=== PATIENT | female | born 2000 | race Caucasian/White ===

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

== ENCOUNTER 2018-04-17 23:45 | Emergency (ER) | payer MEDICAID, OTHER ==
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
[2018-04-18 07:44] VITALS: BP 112/86
== END 2018-04-18 05:44 | disposition home or self-care (01) ==
LOC: ER 23:45
DX: T74.21XA Adult sexual abuse, confirmed, initial encounter (principal); S31.41XA Laceration without foreign body of vagina and vulva, initial encounter; Y07.59 Other non-family member, perpetrator of maltreatment and neglect; Z88.5 Allergy status to narcotic agent; Z88.1 Allergy status to other antibiotic agents
CPT/HCPCS: 81025; 99285

== ENCOUNTER → 2018-05-18 | Outpatient (CLI) | payer OTHER, MEDICAID ==
[2018-05-18 09:38] LABS: CHOLESTEROL 199.35 mg/dL (0-200); GLUCOSE,FASTING 84 mg/dL (<110); TRIGLYCERIDES 81 mg/dL (<150)
[2018-05-18 09:49] LABS: DIRECT LDL 128 mg/dL (<100)
== END ==
LOC: OD 08:26
PROVIDERS: ATTEND Psychiatry & Neurology Psychiatry
DX: F43.12 Post-traumatic stress disorder, chronic (principal); Z79.899 Other long term (current) drug therapy
CPT/HCPCS: 36415; 80061; 82947; 83036

== ENCOUNTER 2018-06-01 14:52 | Emergency (ER) | payer OTHER, MEDICAID ==
[2018-06-01] MEDS ORDERED: IBUPROFEN 600 MG TABLET PO ONE (15:23)
--- NOTE | 2018-06-01 15:25 | ER Document Report ---
ED Medical Screen (RME) - General Chief Complaint: Abdominal Pain Stated Complaint: FEVER/ABDOMINAL PAIN Time Seen by Provider: 06/01/18 15:15 Primary Care Provider: BREA ESCOBAR MD [Primary Care Provider] - Follow up as needed Mode of Arrival: Ambulatory Information source: Patient TRAVEL OUTSIDE OF THE [place] IN LAST 30 DAYS: No - HPI Patient complains to provider of: HEADACHE, ABDO PAIN Notes: 06/01/18 15:24 Patient here with multiple complaints. Patient states she was seen in [facility] on the for similar symptoms. She was given some pain medicine and nausea medicine which she cannot remember the name of. She does not feel any better. Right now she is complaining of cough, lower abdominal pain is intermittent. She also complains of a headache. She states that today she was feeling dizzy at school. No chest pain or shortness of breath. Exam Nontoxic, no distress, lungs clear and equal throughout, normal heart sounds, nonfocal neurological exam. No focal tenderness on limited abdominal exam in triage. Plan CBC, CMP, lipase, urine, urine , chest x-ray, Motrin An initial examination was made on the patient as part of the triage process, and it was determined a more comprehensive evaluation was necessary. Initial labs were ordered and patient was transferred to another provider in the ED who assumed care and finished evaluation and plan. - Related Data Allergies/Adverse Reactions: codeine [Codeine] Allergy (Intermediate, Verified 04/17/18 23:47) RASH sulfamethoxazole [From Septra] Allergy (Intermediate, Verified 04/17/18 23:47) RASH trimethoprim [From Octra] Allergy (Verified 04/17/18 23:47) Past Medical History - Past Medical History Cardiac Medical History: Denies: Hx Heart Attack, Hx Hypertension Pulmonary Medical History: Denies: Hx Asthma Neurological Medical History: Denies: Hx Cerebrovascular Accident, Hx Seizures Renal/ Medical History: Denies: Hx Peritoneal Dialysis GI Medical History: Denies: Hx Hepatitis, Hx Hiatal Hernia, Hx Ulcer Infectious Medical History: Denies: Hx Hepatitis Past Surgical History: Denies: Hx Hysterectomy, Hx Mastectomy, Hx Open Heart Surgery, Hx Pacemaker Physical Exam - Vital signs Vitals: Temp Pulse Resp BP Pulse Ox 98.5 F 74 18 136/80 H 97 06/01/18 15:04 06/01/18 15:04 06/01/18 15:04 06/01/18 15:04 06/01/18 15:04 Course - Vital Signs Vital signs: Temp Pulse Resp BP Pulse Ox 98.5 F 74 18 136/80 H 97 06/01/18 15:04 06/01/18 15:04 06/01/18 15:04 06/01/18 15:04 06/01/18 15:04 Doctor's Discharge - Discharge Referrals: BREA ESCOBAR MD [Primary Care Provider] - Follow up as needed
--- NOTE | 2018-06-01 16:15 | RADIOLOGY REPORT (SQ) ---
EXAM DESCRIPTION: CHEST 2 VIEWS COMPLETED DATE/TIME: 06/01/2018 4:08 pm REASON FOR STUDY: COUGH COMPARISON: 08/06/2009. EXAM PARAMETERS: NUMBER OF VIEWS: two views TECHNIQUE: Digital Frontal and Lateral radiographic views of the chest acquired. RADIATION DOSE: NA LIMITATIONS: none FINDINGS: LUNGS AND PLEURA: No opacities, masses or pneumothorax. No pleural effusion. MEDIASTINUM AND HILAR STRUCTURES: No masses or contour abnormalities. HEART AND VASCULAR STRUCTURES: Heart normal size. No evidence for failure. BONES: No acute findings. HARDWARE: None in the chest. OTHER: No other significant finding. IMPRESSION: NO ACUTE RADIOGRAPHIC FINDING IN THE CHEST. TECHNICAL DOCUMENTATION: JOB ID: [id number]- All Rights Reserved Reading location - IP/workstation name: [email or web address]
[2018-06-01 16:36] LABS: ABSOLUTE LYMPHOCYTES (AUTO) 1.8 10^3/uL (0.5-4.7); ABSOLUTE MONOCYTES (AUTO) 0.7 10^3/uL (0.1-1.4); ABSOLUTE NEUT (AUTO) 6.6 10^3/uL (1.7-8.2); BASOPHILS % (AUTO) 0.5 % (0-2); EOSINOPHILS % (AUTO) 0.4 % (0-6); HEMOGLOBIN 14.6 g/dL (12.0-15.5); LYMPHOCYTES % (AUTO) 19.4 % (13-45); MEAN CORPUSCULAR HEMOGLOBIN 28.4 pg (27.0-33.4); MEAN CORPUSCULAR HGB CONC 34.1 g/dL (32.0-36.0); MEAN CORPUSCULAR VOLUME 83 fl (80-97); MONOCYTES % (AUTO) 7.8 % (3-13); PLATELET COUNT 377 10^3/uL (150-450); RED BLOOD COUNT 5.16 10^6/uL (3.72-5.28); RED CELL DISTRIBUTION WIDTH 12.7 % (11.5-14.0); SEGMENTED NEUTROPHILS % (AUTO) 71.9 % (42-78); TOTAL CELLS COUNTED % (AUTO) 100 %; WHITE BLOOD COUNT 9.2 10^3/uL (4.0-10.5)
[2018-06-01 16:46] LABS: APPEARANCE,URINE CLOUDY; BILIRUBIN,URINE NEGATIVE (NEGATIVE); COLOR,URINE YELLOW; GLUCOSE, URINE NEGATIVE (NEGATIVE); KETONES,URINE NEGATIVE (NEGATIVE); LEUKOCYTE ESTERASE,URINE TRACE (NEGATIVE); NITRITE,URINE NEGATIVE (NEGATIVE); PROTEIN,URINE 30 mg/dL (NEGATIVE)
[2018-06-01 16:55] LABS: ALANINE AMINOTRANSFERASE 20 U/L (5-35); ALBUMIN 4.8 g/dL (3.7-5.6); ALKALINE PHOSPHATASE 78 U/L (50-135); ANION GAP 9 (5-19); ASPARTATE AMINO TRANSFERASE 25 U/L (5-30); BILIRUBIN,DIRECT 0.2 mg/dL (0.0-0.4); BILIRUBIN,TOTAL 0.4 mg/dL (0.2-1.3); BLOOD UREA NITROGEN 8 mg/dL (7-20); CALCIUM 10.1 mg/dL (8.4-10.2); CARBON DIOXIDE 27 mmol/L (22-30); CHLORIDE 104 mmol/L (98-107); GLUCOSE 96 mg/dL (75-110); LIPASE 95.7 U/L (23-300); POTASSIUM 4.5 mmol/L (3.6-5.0); SODIUM 139.7 mmol/L (137-145); TOTAL PROTEIN 8.4 g/dL (6.3-8.2)
--- NOTE | 2018-06-01 17:15 | EKG REPORT ---
SEVERITY:- NORMAL ECG - SINUS RHYTHM : Confirmed by: Curtis Haynes MD 01-Jun-2018 17:14:37
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
[2018-06-01 19:30] VITALS: BP 109/61
== END 2018-06-01 19:30 | disposition home or self-care (01) ==
LOC: ER 14:52
DX: R10.9 Unspecified abdominal pain (principal); R11.0 Nausea; R25.1 Tremor, unspecified
CPT/HCPCS: 36415; 71046; 80053; 81001; 81025; 83690; 85025; 93005; 93010; 99284

== ENCOUNTER 2018-07-04 15:48 | Emergency (ER) | payer OTHER, MEDICAID ==
[2018-07-04 16:05] VITALS: BP 121/64
--- NOTE | 2018-07-04 16:30 | ER Document Report ---
HPI - HPI Time Seen by Provider: 07/04/18 16:24 Pain Level: 4 Notes: Patient is a 17-year-old female no significant past medical history who presents complaining of head injury yesterday while at work. Patient states that she is currently having a mild headache with intermittent nausea. Patient states that she hit her superior forehead against a faucet. She did not lose consciousness or have any episodes of vomiting. Patient states that she is going to need a w ork note. She has had decreased p.o. intake/appetite, but is still able to eat and drink. She is urinating normally and having normal bowel movements. She has no other concerns or complaints. She is not on any blood thinning medications. Denies any fever, neck pain, changes in vision/speech/mentation/hearing, URI, sore throat, chest pain, palpitations, syncope, cough, shortness of breath, wheeze, dyspnea, abdominal pain, vomiting/diarrhea, urinary retention, dysuria, hematuria, loss of control of bowel or bladder, numbness/tingling, saddle anesthesia, muscle paralysis/weakness, or rash. - ROS Systems Reviewed and Negative: Yes All other systems reviewed and negative - REPRODUCTIVE Reproductive: DENIES: : Past Medical History - Social History Smoking Status: Never Smoker Family History: Reviewed & Not Pertinent - Past Medical History Cardiac Medical History: Denies: Hx Heart Attack, Hx Hypertension Pulmonary Medical History: Denies: Hx Asthma Neurological Medical History: Denies: Hx Cerebrovascular Accident, Hx Seizures Renal/ Medical History: Denies: Hx Peritoneal Dialysis GI Medical History: Denies: Hx Hepatitis, Hx Hiatal Hernia, Hx Ulcer Infectious Medical History: Denies: Hx Hepatitis Past Surgical History: Denies: Hx Hysterectomy, Hx Mastectomy, Hx Open Heart Surgery, Hx Pacemaker Vertical Provider Document - CONSTITUTIONAL Agree With Documented VS: Yes Notes: PHYSICAL EXAMINATION: accompanied by female nurse GENERAL: Well-appearing, well-nourished and in no acute distress. A&Ox4. Answers questions appropriately. HEAD: Atraumatic, normocephalic. Non-tender. No lancaster sign no hematoma or bogginess.. EYES: Pupils equal round and reactive to light, extraocular movements intact, sclera anicteric, conjunctiva are normal. No raccoon eyes/entrapment ENT: EAC clear b/l. TM's intact b/l without erythema, fluid, or perforation. Nares patent and without discharge. oropharynx clear without exudates. No tonsilar hypertrophy or erythema. Moist mucous membranes. No sinus tenderness. No hemotympanum/CSF discharge. NECK: Normal range of motion, supple without lymphadenopathy. No rigidity. No midline tenderness. LUNGS: Breath sounds clear to auscultation bilaterally and equal. No wheezes rales or rhonchi. HEART: Regular rate and rhythm without murmurs, rubs, gallops. ABDOMEN: Soft, nontender, nondistended abdomen. No guarding, no rebound. Normal bowel sounds present. No CVA tenderness bilaterally. Musculoskeletal: Ext's b/l: FROM to passive/active. Strength 5+/5. No deficits noted. No bony tenderness of extremities. Back: FROM to passive/active. Strength 5+/5. No vertebral point tenderness, stepoffs, or deformities. No other bony tenderness or ecchymosis. SLR negative b/l. Extremities: No cyanosis, clubbing, or edema b/l. Peripheral pulses 2+. Capillary refill less than 2 seconds. NEUROLOGICAL: NIH 0. GCS 15. Cranial nerves grossly intact. Normal speech, normal gait. Normal sensory, motor exams. Reflexes 2+ b/l. GISELE's negative. Pronator drift negative. Heel/batista, finger/nose wnl. PSYCH: Normal mood, normal affect. SKIN: Warm, Dry, normal turgor, no rashes or lesions noted. - INFECTION CONTROL TRAVEL OUTSIDE OF THE [place] IN LAST 30 DAYS: No Course - Re-evaluation Re-evalutation: 07/04/18 16:54 Patient is an afebrile, well-hydrated, 17-year-old female who presents to the emergency department with a mild headache and nausea status post head injury yesterday. I do suspect this to be postconcussive. Vitals are acceptable without significant tachycardia, tachypnea, or hypoxia. PE is otherwise unremarkable for any focal neurological deficits. NIH 0, GCS 15, cranial nerves grossly intact, CT [place] head criteria negative, PECARN negative, Nexus negative. No labs or imaging warranted. Patient is nontoxic-appearing and is able to tolerate p.o. without difficulty. Motrin and Zofran were given p.o. today. Low suspicion for any sepsis, severe dehydration, orbital entrapment, meningitis, intracranial hemorrhage, ischemic stroke, or fracture at this time. Patient is aware that this condition can change from initial presentation and that she needs to monitor symptoms closely for any acute changes. Recheck with your PCM in 2 to 3 days. Consider consult with neurology. Return to the ED with any other worsening/concerning symptoms. Patient is in agreement. - Vital Signs Vital signs: Temp Pulse Resp BP Pulse Ox 98.4 F 93 H 18 121/64 97 07/04/18 16:03 07/04/18 16:03 07/04/18 16:03 07/04/18 16:03 07/04/18 16:03 Discharge - Discharge Clinical Impression: Post concussion syndrome Head injury Qualifiers: Encounter type: initial encounter Qualified Code(s): S09.90XA - Unspecified injury of head, initial encounter Headache Qualifiers: Headache type: unspecified Headache chronicity pattern: acute headache Intractability: not intractable Qualified Code(s): R51 - Headache Condition: Stable Disposition: HOME, SELF-CARE Instructions: Headache ([facility]), Head Injury Precautions ([facility]), Post-Concussion Syndrome ([facility]) Additional Instructions: You have been evaluated in the Emergency Department for a head injury and have been diagnosed with a concussion. Concussions can be associated with any of the following symptoms: confusion, sleepiness, memory deficits, nausea, general fatigue, or headaches. The only way to treat these symptoms is complete brain rest. Please follow-up with both your primary physician and a Neurologist in 1-2 weeks to be rechecked. Return to the ER immediately if you experience episodes of passing out, having an unstable or wobbly gait, have uncontrollable headaches or nausea, have blindness/vision changes, or have any other concerning symptoms. Brain Rest: 1. No activity/work/school or phone/TV/computer for at least one week. 2. After a week you can slowly incorporate small tasks like brushing your teeth and other small activities over a couple days. 3. If symptoms return, go back to step 1 and repeat; if no further symptoms, progress to step 4. 4. After small tasks can be performed without symptoms, slowly introduce more rigorous tasks like cooking, cleaning, etc. over 2-3 days. 5. If symptoms return, go back to step 1 and repeat; if no further symptoms, progress to step 6. 6. If rigorous tasks can be performed without symptoms, you may resume normal daily activity. 7. At any point, if symptoms return, return to strict brain rest and start the process over. Return to the ED with any worsening symptoms and/or development of fever, headache, changes in behavior/mentation/vision/speech, chest pain, palpitations, syncope, shortness of breath, trouble breathing, abdominal pain, n/v/d, blood in stool/urine, loss of control of bowel/bladder, urinary retention, muscle weakness/paralysis, saddle anesthesia, numbness/tingling, or other worsening symptoms that are concerning to you. Prescriptions: Ondansetron [Zofran Odt 4 mg Tablet] 1 - 2 tab PO Q4H PRN #15 tab.rapdis PRN Reason: For Nausea/Vomiting Referrals: BREA ESCOBAR MD [NO LOCAL MD] - Follow up as needed GERSON DAILY MD [NO LOCAL MD] - Follow up as needed
[2018-07-04] MEDS ORDERED: IBUPROFEN 600 MG TABLET PO ONE (16:48)
[2018-07-04] MEDS ORDERED: ONDANSETRON 4 MG TAB.RAPDIS PO ONE (16:48)
== END 2018-07-04 16:58 | disposition home or self-care (01) ==
LOC: ER 15:48
DX: S09.90XA Unspecified injury of head, initial encounter (principal); R11.0 Nausea; X58.XXXA Exposure to other specified factors, initial encounter; Y99.0 Civilian activity done for income or pay
CPT/HCPCS: 99283; S0119

== ENCOUNTER 2018-07-21 21:53 | Emergency (ER) | payer OTHER, MEDICAID ==
[2018-07-21] MEDS ORDERED: ONDANSETRON 4 MG TAB.RAPDIS PO ONE (23:59)
--- NOTE | 2018-07-22 00:02 | ER Document Report ---
ED Medical Screen (RME) - General Chief Complaint: Abdominal Pain Stated Complaint: STOMACH PAIN Time Seen by Provider: 07/21/18 23:56 Primary Care Provider: SULEIMAN ONEAL MD [Primary Care Provider] - Follow up as needed Notes: Patient is a 17-year-old female who presents emergency department with a chief complaint of lower abdominal pain. She states that it is a sharp pain. She states that she had sex about a week ago and since then she has had a sharp pain where her IUD is. She is sexually active. Her last menstrual cycle was in the beginning of June. She does not recall the date. Denies any vaginal discharge. Exam: Tender mid lower abdomen. I have greeted and performed a rapid initial assessment of this patient. A comprehensive ED assessment and evaluation of the patient, analysis of test results and completion of medical decision making process will be conducted by an additional ED providers. TRAVEL OUTSIDE OF THE [place] IN LAST 30 DAYS: No - Related Data Allergies/Adverse Reactions: codeine [Codeine] Allergy (Intermediate, Verified 07/04/18 15:58) RASH sulfamethoxazole [From Septra] Allergy (Intermediate, Verified 07/04/18 15:58) RASH trimethoprim [From Octra] Allergy (Verified 07/04/18 15:58) Past Medical History - Past Medical History Cardiac Medical History: Denies: Hx Heart Attack, Hx Hypertension Pulmonary Medical History: Denies: Hx Asthma Neurological Medical History: Denies: Hx Cerebrovascular Accident, Hx Seizures Renal/ Medical History: Denies: Hx Peritoneal Dialysis GI Medical History: Denies: Hx Hepatitis, Hx Hiatal Hernia, Hx Ulcer Infectious Medical History: Denies: Hx Hepatitis Past Surgical History: Denies: Hx Hysterectomy, Hx Mastectomy, Hx Open Heart Surgery, Hx Pacemaker Physical Exam - Vital signs Vitals: Temp Pulse Resp BP Pulse Ox 98.1 F 72 16 122/78 99 07/21/18 22:08 07/21/18 22:08 07/21/18 22:08 07/21/18 22:08 07/21/18 22:08 Course - Vital Signs Vital signs: Temp Pulse Resp BP Pulse Ox 98.1 F 72 16 122/78 99 07/21/18 22:08 07/21/18 22:08 07/21/18 22:08 07/21/18 22:08 07/21/18 22:08 Doctor's Discharge - Discharge Referrals: SULEIMAN ONEAL MD [Primary Care Provider] - Follow up as needed
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
--- NOTE | 2018-07-22 01:23 | RADIOLOGY REPORT (SQ) ---
EXAM DESCRIPTION: US PELVIS TRANSVAGINAL COMPLETED DATE/TME: 07/22/2018 00:34 CLINICAL HISTORY: 17 years Female pelvic pain COMPARISON: None. TECHNIQUE: Transvaginal duplex imaging performed to evaluate the pelvis. FINDINGS: Uterus measures 6.6 x 3 x 2.3 cm. Cervix measures 2.3 cm. Endometrial stripe 4 mm. Left ovary is obscured by bowel gas. Right ovary measures 2.9 x 2.3 cm with normal flow. Simple appearing cyst measures 1.9 cm. This is almost certainly benign and no follow-up is recommended. No free fluid. IMPRESSION: No acute process noted Nonvisualization of the left ovary
[2018-07-22] MEDS ORDERED: ONDANSETRON HCL 8 MG TABLET PO ONE (02:00)
[2018-07-22] MEDS ORDERED: ONDANSETRON 4 MG TAB.RAPDIS PO ONE (02:13)
[2018-07-22 02:32] LABS: ABSOLUTE BASOPHILS # (AUTO) 0.1 10^3/uL (0.0-0.2); ABSOLUTE EOSINOPHILS # (AUTO) 0.1 10^3/uL (0.0-0.6); ABSOLUTE LYMPHOCYTES (AUTO) 2.8 10^3/uL (0.5-4.7); ABSOLUTE MONOCYTES (AUTO) 0.8 10^3/uL (0.1-1.4); ABSOLUTE NEUT (AUTO) 5.6 10^3/uL (1.7-8.2); EOSINOPHILS % (AUTO) 1.1 % (0-6); HEMATOCRIT 40.8 % (36.0-47.0); LYMPHOCYTES % (AUTO) 30.3 % (13-45); MEAN CORPUSCULAR HEMOGLOBIN 28.8 pg (27.0-33.4); MEAN CORPUSCULAR HGB CONC 34.3 g/dL (32.0-36.0); MEAN CORPUSCULAR VOLUME 84 fl (80-97); MONOCYTES % (AUTO) 8.4 % (3-13); PLATELET COUNT 310 10^3/uL (150-450); RED BLOOD COUNT 4.85 10^6/uL (3.72-5.28); RED CELL DISTRIBUTION WIDTH 13.8 % (11.5-14.0); SEGMENTED NEUTROPHILS % (AUTO) 59.2 % (42-78); TOTAL CELLS COUNTED % (AUTO) 100 %; WHITE BLOOD COUNT 9.4 10^3/uL (4.0-10.5)
[2018-07-22 02:42] LABS: APPEARANCE,URINE SLIGHTLY-CLOUDY; BILIRUBIN,URINE NEGATIVE (NEGATIVE); COLOR,URINE AMBER; GLUCOSE, URINE NEGATIVE (NEGATIVE); KETONES,URINE TRACE mg/dL (NEGATIVE); LEUKOCYTE ESTERASE,URINE NEGATIVE (NEGATIVE); NITRITE,URINE NEGATIVE (NEGATIVE); PROTEIN,URINE NEGATIVE (NEGATIVE); URINE SPECIFIC GRAVITY 1.026; UROBILINOGEN,URINE NEGATIVE mg/dL (<2.0)
[2018-07-22 02:50] LABS: ALANINE AMINOTRANSFERASE 24 U/L (5-35); ALBUMIN 4.6 g/dL (3.7-5.6); ALKALINE PHOSPHATASE 71 U/L (50-135); ANION GAP 9 (5-19); ASPARTATE AMINO TRANSFERASE 22 U/L (5-30); BILIRUBIN,DIRECT 0.2 mg/dL (0.0-0.4); BILIRUBIN,TOTAL 0.3 mg/dL (0.2-1.3); BLOOD UREA NITROGEN 12 mg/dL (7-20); CALCIUM 9.8 mg/dL (8.4-10.2); CARBON DIOXIDE 27 mmol/L (22-30); CHLORIDE 102 mmol/L (98-107); GLUCOSE 105 mg/dL (75-110); POTASSIUM 3.9 mmol/L (3.6-5.0); SODIUM 138.3 mmol/L (137-145); TOTAL PROTEIN 7.8 g/dL (6.3-8.2)
[2018-07-22 04:02] LABS: CHLAM PCR NOT DETECTED (NOT DETECT); GON PCR NOT DETECTED (NOT DETECT)
[2018-07-22 04:49] VITALS: BP 120/67
[2018-07-22 05:16] LABS: RBCS (WET MOUNT) NO RBCS SEEN; T.VAGINALIS (WET MOUNT) NO TRICHOMONAS SEEN; WBCS (WET MOUNT) FEW WBCS SEEN; YEAST (WET MOUNT) NO YEAST SEEN
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
[2018-07-22] MEDS ORDERED: KETOROLAC TROMETHAMINE 10 MG TABLET PO ONE (05:43)
== END 2018-07-22 06:00 | disposition home or self-care (01) ==
LOC: ER 21:53
DX: R10.2 Pelvic and perineal pain (principal); N89.8 Other specified noninflammatory disorders of vagina; Z79.3 Long term (current) use of hormonal contraceptives; Z91.410 Personal history of adult physical and sexual abuse; Z88.6 Allergy status to analgesic agent; Z88.1 Allergy status to other antibiotic agents
CPT/HCPCS: 99284; 36415; 87210; 84703; 85025; 80053; 81001; 87491; 87591; 76830; 93976; S0119; J3490

== ENCOUNTER → 2018-08-17 | Outpatient (CLI) | payer OTHER, MEDICAID | LOC: OD 14:51 | PROVIDERS: ATTEND Physician Assistant | DX: L40.0 Psoriasis vulgaris (principal); L02.424 Furuncle of left upper limb; L02.423 Furuncle of right upper limb; Z79.899 Other long term (current) drug therapy ==

== ENCOUNTER 2018-08-29 10:47 | Emergency (ER) | payer OTHER, MEDICAID ==
[2018-08-29 10:53] VITALS: BP 104/59
--- NOTE | 2018-08-29 11:07 | ER Document Report ---
HPI - HPI Time Seen by Provider: 08/29/18 10:58 Pain Level: 3 Notes: Patient is a 17-year-old female no significant past medical history who presents complaining of right anterior knee pain for the past couple days without injury. Patient states that she primarily feels pain with deep knee bending, but otherwise can ambulate without difficulty. She has not noticed any swelling, redness, or bruising. Pain does not radiate. Denies any headache, fever, URI, sore throat, chest pain, palpitations, syncope, cough, shortness of breath, wheeze, dyspnea, abdominal pain, nausea/vomiting/diarrhea, urinary retention, dysuria, hematuria, loss of control of bowel or bladder, numbness/tingling, saddle anesthesia, muscle paralysis/weakness, or rash. - ROS Systems Reviewed and Negative: Yes All other systems reviewed and negative - REPRODUCTIVE Reproductive: DENIES: : Past Medical History - Social History Smoking Status: Never Smoker Family History: Reviewed & Not Pertinent - Past Medical History Cardiac Medical History: Denies: Hx Heart Attack, Hx Hypertension Pulmonary Medical History: Denies: Hx Asthma Neurological Medical History: Denies: Hx Cerebrovascular Accident, Hx Seizures Renal/ Medical History: Denies: Hx Peritoneal Dialysis GI Medical History: Denies: Hx Hepatitis, Hx Hiatal Hernia, Hx Ulcer Infectious Medical History: Denies: Hx Hepatitis Past Surgical History: Denies: Hx Hysterectomy, Hx Mastectomy, Hx Open Heart Surgery, Hx Pacemaker Vertical Provider Document - CONSTITUTIONAL Agree With Documented VS: Yes Notes: PHYSICAL EXAMINATION: GENERAL: Well-appearing, well-nourished and in no acute distress. LUNGS: Breath sounds clear to auscultation bilaterally and equal. No wheezes rales or rhonchi. HEART: Regular rate and rhythm without murmurs, rubs, gallops. Musculoskeletal: Lt knee: No obvious swelling, ecchymosis, effusion, or deformity. FROM to passive/active and flexion >90 w/o difficulty. Strength 5+/5. N/V intact distal. No bony tenderness. Ligamentous grossly stable, limited exam with larger leg size. Arcenio grossly negative. Patellar grind negative. No calf tenderness. Extremities: No cyanosis, clubbing, or edema b/l. Peripheral pulses 2+. C apillary refill less than 3 seconds. Arin neg b/l. NEUROLOGICAL: Normal speech, normal gait. Normal sensory, motor exams PSYCH: Normal mood, normal affect. SKIN: Warm, Dry, normal turgor, no rashes or lesions noted. - INFECTION CONTROL TRAVEL OUTSIDE OF THE [place] IN LAST 30 DAYS: No Course - Re-evaluation Re-evalutation: 08/29/18 11:06 Patient is an afebrile, well-hydrated, 51-year-old female who presents to the ED with Rt Knee pain. Vitals are acceptable without any significant tachycardia, tachypnea, or hypoxia. PE is otherwise unremarkable for any neurovascular compromise, obvious tendon/ligament rupture, obvious fracture/dislocation, septic joint. Bosque knee rules negative. Patient is nontoxic-appearing. Patient is able to ambulate and weight-bear. No other labs or imaging warranted at this time based on H&P. Conservative measures otherwise for symptoms. Recheck with your PCM in 3-5 days. Consider consult orthopedics. Return to the ED with any worsening/concerning symptoms otherwise as reviewed in discharge. Patient is in agreement. - Vital Signs Vital signs: Temp Pulse Resp BP Pulse Ox 98.4 F 80 16 104/59 L 97 08/29/18 10:52 08/29/18 10:52 08/29/18 10:52 08/29/18 10:52 08/29/18 10:52 Discharge - Discharge Clinical Impression: Right knee pain Qualifiers: Chronicity: acute Qualified Code(s): M25.561 - Pain in right knee Condition: Stable Disposition: HOME, SELF-CARE Additional Instructions: Rest, Ice, Compression, Elevation Tylenol/ibuprofen as needed Light stretches daily Strength exercises as able Moist heat and massage may help F/u with your PCP in 3-5 days for a recheck Consider consult(s) with Orthopedics/physical therapy for ongoing/worsening symptoms Return to the ED with any worsening symptoms and/or development of fever, headache, chest pain, palpitations, syncope, shortness of breath, trouble breathing, abdominal pain, n/v/d, muscle weakness/paralysis, numbness/tingling, swelling, redness, or other worsening symptoms that are concerning to you. Referrals: INGRIS WHITE PA [Primary Care Provider] - Follow up as needed [facility] [Provider Group] - Follow up as needed
== END 2018-08-29 11:10 | disposition home or self-care (01) ==
LOC: ER 10:47
DX: M25.561 Pain in right knee (principal)
CPT/HCPCS: 99283

== ENCOUNTER 2018-10-27 13:36 | Emergency (ER) | payer OTHER, MEDICAID ==
--- NOTE | 2018-10-27 14:18 | ER Document Report ---
ED Medical Screen (RME) - General Chief Complaint: Nausea/Vomiting Stated Complaint: HEADACHE Time Seen by Provider: 10/27/18 14:12 Primary Care Provider: EDDIE ENRIQUE NP [Primary Care Provider] - Follow up as needed TRAVEL OUTSIDE OF THE [place] IN LAST 30 DAYS: No - HPI Notes: 10/27/18 14:20 17-year-old female to the emergency department with complaints of headache, dizziness that has been getting worse over the past several days since she restarted her psychotropic medicine. She states that she is on sertraline 100 mg. She is supposed to be taking half a tablet to 1 tablet daily (50-100 mg) and she has been taking 300 mg daily instead. She also has been taking BuSpar she supposed to be taking 1 tablet about a day and she is been taking 3 tablets as well. She does admit to some tremors as well. She also admits to some confusion. She denies SI, HI, hallucinations. I performed a medical screening exam on the patient and will obtain labs, EKG and have her followed and further managed by main side provider. - Related Data Allergies/Adverse Reactions: codeine [Codeine] Allergy (Intermediate, Verified 08/29/18 10:49) RASH sulfamethoxazole [From Septra] Allergy (Intermediate, Verified 08/29/18 10:49) RASH trimethoprim [From Septra] Allergy (Verified 08/29/18 10:49) Past Medical History - Past Medical History Cardiac Medical History: Denies: Hx Heart Attack, Hx Hypertension Pulmonary Medical History: Denies: Hx Asthma Neurological Medical History: Denies: Hx Cerebrovascular Accident, Hx Seizures Renal/ Medical History: Denies: Hx Peritoneal Dialysis GI Medical History: Denies: Hx Hepatitis, Hx Hiatal Hernia, Hx Ulcer Infectious Medical History: Denies: Hx Hepatitis Past Surgical History: Denies: Hx Hysterectomy, Hx Mastectomy, Hx Open Heart Surgery, Hx Pacemaker Physical Exam - Vital signs Vitals: Temp Pulse Resp BP Pulse Ox 98.7 F 74 16 121/78 96 10/27/18 13:44 10/27/18 13:44 10/27/18 13:44 10/27/18 13:44 10/27/18 13:44 Course - Vital Signs Vital signs: Temp Pulse Resp BP Pulse Ox 98.7 F 74 16 121/78 96 10/27/18 13:44 10/27/18 13:44 10/27/18 13:44 10/27/18 13:44 10/27/18 13:44 Doctor's Discharge - Discharge Referrals: EDDIE ENRIQUE NP [Primary Care Provider] - Follow up as needed
[2018-10-27 15:07] LABS: ABSOLUTE BASOPHILS # (AUTO) 0.1 10^3/uL (0.0-0.2); ABSOLUTE EOSINOPHILS # (AUTO) 0.1 10^3/uL (0.0-0.6); ABSOLUTE LYMPHOCYTES (AUTO) 2.2 10^3/uL (0.5-4.7); ABSOLUTE MONOCYTES (AUTO) 0.8 10^3/uL (0.1-1.4); ABSOLUTE NEUT (AUTO) 6.6 10^3/uL (1.7-8.2); BASOPHILS % (AUTO) 0.9 % (0-2); EOSINOPHILS % (AUTO) 0.7 % (0-6); HEMATOCRIT 42.5 % (36.0-47.0); HEMOGLOBIN 14.4 g/dL (12.0-15.5); LYMPHOCYTES % (AUTO) 22.5 % (13-45); MEAN CORPUSCULAR HGB CONC 33.9 g/dL (32.0-36.0); MEAN CORPUSCULAR VOLUME 83 fl (80-97); MONOCYTES % (AUTO) 7.8 % (3-13); PLATELET COUNT 380 10^3/uL (150-450); RED BLOOD COUNT 5.15 10^6/uL (3.72-5.28); RED CELL DISTRIBUTION WIDTH 12.9 % (11.5-14.0); SEGMENTED NEUTROPHILS % (AUTO) 68.1 % (42-78); TOTAL CELLS COUNTED % (AUTO) 100 %; WHITE BLOOD COUNT 9.7 10^3/uL (4.0-10.5)
[2018-10-27 15:13] LABS: APPEARANCE,URINE CLEAR; BILIRUBIN,URINE NEGATIVE (NEGATIVE); COLOR,URINE YELLOW; GLUCOSE, URINE NEGATIVE (NEGATIVE); KETONES,URINE NEGATIVE (NEGATIVE); LEUKOCYTE ESTERASE,URINE NEGATIVE (NEGATIVE); NITRITE,URINE NEGATIVE (NEGATIVE); PROTEIN,URINE NEGATIVE (NEGATIVE); URINE SPECIFIC GRAVITY 1.024; UROBILINOGEN,URINE NEGATIVE mg/dL (<2.0)
[2018-10-27 15:28] VITALS: BP 106/65
[2018-10-27 15:35] LABS: ALBUMIN 4.6 g/dL (3.7-5.6); ALKALINE PHOSPHATASE 101 U/L (50-135); ANION GAP 11 (5-19); ASPARTATE AMINO TRANSFERASE 25 U/L (5-30); BILIRUBIN,DIRECT 0.1 mg/dL (0.0-0.4); BILIRUBIN,TOTAL 0.5 mg/dL (0.2-1.3); BLOOD UREA NITROGEN 10 mg/dL (7-20); CALCIUM 9.7 mg/dL (8.4-10.2); CARBON DIOXIDE 28 mmol/L (22-30); CHLORIDE 101 mmol/L (98-107); GLUCOSE 89 mg/dL (75-110); POTASSIUM 4.3 mmol/L (3.6-5.0); TOTAL PROTEIN 7.8 g/dL (6.3-8.2)
--- NOTE | 2018-10-27 15:57 | ER Document Report ---
ED GI/ - General Chief Complaint: Nausea/Vomiting Stated Complaint: HEADACHE Time Seen by Provider: 10/27/18 14:12 Primary Care Provider: EDDIE ENRIQUE NP [Primary Care Provider] - Follow up as needed Mode of Arrival: Ambulatory Information source: Patient Notes: 17-year-old female presented to ED for complaint of headache and dizziness for the last 4 days. She states she started back on her Sertraline and BuSpar. She states she was supposed to take on one a day because she had been off of them and then restarted but she is been taken 3 a day. She states she was on it before and was off of it for months and she wanted to take about the way she wanted to instead of the way the doctor prescribed. She states she has been dizzy and headaches. Orthostatic vital signs are normal all lab works are normal these were all ordered before I saw the patient. TRAVEL OUTSIDE OF THE [place] IN LAST 30 DAYS: No - HPI Patient complains to provider of: Other - Dizziness and headache Onset: Other - 4 days Timing/Duration: Persistent - Due to taken 3 times the amount of her mental health medications that she supposed to. Quality of pain: Achy Severity at maximum: Moderate Severity in ED: Moderate Pain Level: 3 Vaginal bleeding (Compared to normal period): None Associated symptoms: denies: Nausea, Vomiting Exacerbated by: Denies Relieved by: Denies Similar symptoms previously: No Recently seen / treated by doctor: Yes - Related Data Allergies/Adverse Reactions: codeine [Codeine] Allergy (Intermediate, Verified 08/29/18 10:49) RASH sulfamethoxazole [From Septra] Allergy (Intermediate, Verified 08/29/18 10:49) RASH trimethoprim [From Septra] Allergy (Verified 08/29/18 10:49) Past Medical History - General Information source: Patient - Social History Smoking Status: Never Smoker Frequency of alcohol use: None Drug Abuse: None Occupation: hotel dining room cashier Lives with: Spouse/Significant other Family History: Reviewed & Not Pertinent Patient has suicidal ideation: No Patient has homicidal ideation: No - Past Medical History Cardiac Medical History: Reports: None Pulmonary Medical History: Reports: None EENT Medical History: Reports: None Neurological Medical History: Reports: None Endocrine Medical History: Reports: None Renal/ Medical History: Reports: None Malignancy Medical History: Reports: None GI Medical History: Reports: None Musculoskeletal Medical History: Reports None Skin Medical History: Reports None Psychiatric Medical History: Reports: Hx Anxiety, Hx Borderline Personality Disorder, Hx Depression Traumatic Medical History: Reports: None Infectious Medical History: Reports: None Surgical Hx: Negative Past Surgical History: Reports: None - Immunizations Immunizations up to date: Yes Review of Systems - Review of Systems Constitutional: No symptoms reported EENT: No symptoms reported Cardiovascular: Dizziness Respiratory: No symptoms reported Gastrointestinal: No symptoms reported Genitourinary: No symptoms reported Female Genitourinary: No symptoms reported Musculoskeletal: No symptoms reported Skin: No symptoms reported Hematologic/Lymphatic: No symptoms reported Neurological/Psychological: Headaches -: Yes All other systems reviewed and negative Physical Exam - Vital signs Vitals: Temp Pulse Resp BP Pulse Ox 98.7 F 74 16 121/78 96 10/27/18 13:44 10/27/18 13:44 10/27/18 13:44 10/27/18 13:44 10/27/18 13:44 Interpretation: Normal - General General appearance: Appears well, Alert - HEENT Head: Normocephalic, Atraumatic Eyes: Normal Pupils: PERRL - Respiratory Respiratory status: No respiratory distress Chest status: Nontender Breath sounds: Normal Chest palpation: Normal - Cardiovascular Rhythm: Regular Heart sounds: Normal auscultation Murmur: No - Abdominal Inspection: Normal Distension: No distension Bowel sounds: Normal Tenderness: Nontender Organomegaly: No organomegaly - Back Back: Normal, Nontender - Extremities General upper extremity: Normal inspection, Nontender, Normal color, Normal ROM, Normal temperature General lower extremity: Normal inspection, Nontender, Normal color, Normal ROM, Normal temperature, Normal weight bearing. 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 Patient was instructed to pl ease take medications as prescribed not as she has previously done but as they are prescribed now. Patient was instructed to follow-up with her primary care doctor on Thursday. Labs and orthostatic vital signs are negative. Patient is alert and oriented walking with a even steady gait. - Vital Signs Vital signs: Temp Pulse Resp BP Pulse Ox 98.7 F 64 16 106/65 96 10/27/18 13:44 10/27/18 15:26 10/27/18 13:44 10/27/18 15:26 10/27/18 13:44 - Laboratory Result Diagrams: 10/27/18 14:53 10/27/18 14:53 Discharge - Discharge Clinical Impression: Dizziness, taking more than prescibed sertraline Condition: Stable Disposition: HOME, SELF-CARE Additional Instructions: Please only take the prescribed dose of your medication. When your mental healt h worker is ready for you to take a larger dose they will prescribe a larger dose. Acetaminophen Acetaminophen may be taken for pain relief or fever control. It's much safer than aspirin, offering a wider range of "safe" dosages. It is safe during . Some brand names are Tylenol, Panadol, Datril, Anacin 3, Tempra, and Liquiprin. Acetaminophen can be repeated every four hours. The following are maximum recommended dosages: WEIGHT Dose Drops Elixir Chewable(80mg) (LBS.) drprs=droppers tsp=teaspoon 6 40 mg .4 ml (1/2) 6-11 80 mg .8 ml (full) 1/2 tsp 1 tab 12-16 120 mg 1 1/2 drprs 3/4 tsp 1 1/2 tabs 17-23 160 mg 2 drprs 1 tsp 2 tabs 24-30 240 mg 3 drprs 1 1/2 tsp 3 tabs 30-35 320 mg 2 tsp 4 tabs 36-41 360 mg 2 1/4 tsp 4 1/2 tabs 42-47 400 mg 2 1/2 tsp 5 tabs 48-53 480 mg 3 tsp 6 tabs 54-59 520 mg 3 1/4 tsp 6 1/2 tabs 60-64 560 mg 3 1/2 tsp 7 tabs 65-70 600 mg 3 3/4 tsp 7 1/2 tabs 71-76 640 mg 4 tsp 8 tabs 77-82 720 mg 4 1/2 tsp 9 tabs 83-88 800 mg 5 tsp 10 tabs >89 pounds or adults 650 mg to 900 mg Acetaminophen can be repeated every four hours. Maximum daily dose not to exceed 4000 mg. These maximum recommended dosages are slightly higher than the dosages written on the product container, but these dosages are very safe and well below the toxic dosage for acetaminophen. FOLLOW-UP CARE: If you have been referred to a physician for follow-up care, call the [facility] office for an appointment as you were instructed or within the next two days. If you experience worsening or a significant change in your symptoms, notify the physician immediately or return to the Emergency Department at any time for re-evaluation. Forms: Return to Work Referrals: EDDIE ENRIQUE NP [Primary Care Provider] - Follow up as needed
[2018-10-27] MEDS ORDERED: ACETAMINOPHEN 325 MG TABLET PO ONE (16:09)
--- NOTE | 2018-10-27 18:25 | EKG REPORT ---
SEVERITY:- NORMAL ECG - SINUS RHYTHM : Confirmed by: Curtis Haynes MD 27-Oct-2018 18:25:26
== END 2018-10-27 16:50 | disposition home or self-care (01) ==
LOC: ER 13:36
DX: R11.2 Nausea with vomiting, unspecified (principal); R51 Headache; R42 Dizziness and giddiness; Z79.899 Other long term (current) drug therapy; Z91.14 Patient's other noncompliance with medication regimen
CPT/HCPCS: 36415; 80053; 81001; 83735; 84703; 85025; 93005; 93010

== ENCOUNTER 2018-11-13 21:15 | Emergency (ER) | payer OTHER, MEDICAID ==
[2018-11-13] MEDS ORDERED: NORMAL SALINE 1000 ML 1,000 ML IV ONE (21:37)
--- NOTE | 2018-11-13 21:37 | ER Document Report ---
ED Medical Screen (RME) - General Chief Complaint: Abdominal Pain Stated Complaint: ABDOMINAL PAIN Time Seen by Provider: 11/13/18 21:32 Primary Care Provider: EDDIE ENRIQUE NP [Primary Care Provider] - Follow up as needed Mode of Arrival: Ambulatory Information source: Patient Notes: 17-year-old female presents to the ED with possible abdominal pain. Her friend is with her who states that she is to be his surrogate mother. He states that she told him that she was having abdominal pain yesterday and it is much worse today. Patient stated she was having right and left abdominal pain suprapubic pain and low back pain. She states she is having a small amount of vaginal bleeding. She states her last menstrual period was in September and she is trying to be a surrogate mother. Patient would not answer any questions at first but in the end she did answer where her pain was. She is curled up in a ball in the wheelchair and refuses to sit or I can examine her at all in the pit area. I have reviewed patient's medical and surgical history with her and I have updated it. I have greeted and performed a rapid initial assessment of this patient. A comprehensive ED assessment and evaluation of the patient, analysis of test results and completion of medical decision making process will be conducted by an additional ED providers. TRAVEL OUTSIDE OF THE [place] IN LAST 30 DAYS: No - Related Data Allergies/Adverse Reactions: codeine [Codeine] Allergy (Intermediate, Verified 08/29/18 10:49) RASH sulfamethoxazole [From Septra] Allergy (Intermediate, Verified 08/29/18 10:49) RASH trimethoprim [From Septra] Allergy (Verified 08/29/18 10:49) Past Medical History - General Information source: Friend - Social History Cigarette use (# per day): Yes - sometimes Frequency of alcohol use: None Drug Abuse: None Lives with: Friend Family history: Reviewed & Not Pertinent - Past Medical History Cardiac Medical History: Reports: None Pulmonary Medical History: Reports: None EENT Medical History: Reports: None Neurological Medical History: Reports: None Endocrine Medical History: Reports: None Renal/ Medical History: Reports: None Malignancy Medical History: Reports: None GI Medical History: Reports: None Musculoskeltal Medical History: Reports None Skin Medical History: Reports None Psychiatric Medical History: Reports: Hx Anxiety, Hx Borderline Personality Disorder, Hx Depression, Hx Post Traumatic Stress Disorder Traumatic Medical History: Reports: None Infectious Medical History: Reports: None Surgical Hx: Negative Past Surgical History: Reports: None - Immunizations Immunizations up to date: Yes Physical Exam - Vital signs Vitals: Temp Pulse Resp BP Pulse Ox 99.1 F 81 16 113/60 97 11/13/18 21:20 11/13/18 21:20 11/13/18 21:20 11/13/18 21:20 11/13/18 21:20 Course - Vital Signs Vital signs: Temp Pulse Resp BP Pulse Ox 99.1 F 81 16 113/60 97 11/13/18 21:20 11/13/18 21:20 11/13/18 21:20 11/13/18 21:20 11/13/18 21:20 Doctor's Discharge - Discharge Referrals: EDDIE ENRIQUE NP [Primary Care Provider] - Follow up as needed
[2018-11-13 22:22] LABS: ABSOLUTE EOSINOPHILS # (AUTO) 0.1 10^3/uL (0.0-0.6); ABSOLUTE NEUT (AUTO) 4.2 10^3/uL (1.7-8.2); BASOPHILS % (AUTO) 0.4 % (0-2); EOSINOPHILS % (AUTO) 1.1 % (0-6); HEMATOCRIT 38.9 % (36.0-47.0); HEMOGLOBIN 13.3 g/dL (12.0-15.5); LYMPHOCYTES % (AUTO) 42.7 % (13-45); MEAN CORPUSCULAR HEMOGLOBIN 28.2 pg (27.0-33.4); MEAN CORPUSCULAR HGB CONC 34.1 g/dL (32.0-36.0); MEAN CORPUSCULAR VOLUME 83 fl (80-97); MONOCYTES % (AUTO) 10.5 % (3-13); PLATELET COUNT 415 10^3/uL (150-450); RED CELL DISTRIBUTION WIDTH 13.5 % (11.5-14.0); SEGMENTED NEUTROPHILS % (AUTO) 45.3 % (42-78); TOTAL CELLS COUNTED % (AUTO) 100 %; WHITE BLOOD COUNT 9.4 10^3/uL (4.0-10.5)
--- NOTE | 2018-11-13 22:24 | ER Document Report ---
ED General - General Chief Complaint: Abdominal Pain Stated Complaint: ABDOMINAL PAIN Time Seen by Provider: 11/13/18 21:32 Primary Care Provider: EDDIE ENRIQUE NP [Primary Care Provider] - Follow up as needed Mode of Arrival: Ambulatory TRAVEL OUTSIDE OF THE [place] IN LAST 30 DAYS: No - HPI Notes: This is a 17-year-old female who presents today with a complaint of abdominal pain. Patient is extremely anxious and is not giving me any history. She is not talking to me. Her friend is doing most of the talking. Her friend states that she has had some traumatic issues in the past and has issues with trust. She occasionally labs when he cracks a dog. He states that she is been complaining of pain in the lower abdomen since yesterday. He also states that she has had some vaginal spotting. She is trying to be with his baby. No vomiting reported. No diarrhea reported. Once again, patient is not giving me any history. I was able to get her to point to her suprapubic area that hurts. - Related Data Allergies/Adverse Reactions: codeine [Codeine] Allergy (Intermediate, Verified 08/29/18 10:49) RASH sulfamethoxazole [From Septra] Allergy (Intermediate, Verified 08/29/18 10:49) RASH trimethoprim [From Septra] Allergy (Verified 08/29/18 10:49) Past Medical History - General Information source: Friend - Social History Smoking Status: Current Every Day Smoker Cigarette use (# per day): Yes - sometimes Chew tobacco use (# tins/day): No Frequency of alcohol use: None Drug Abuse: None Lives with: Friend Family History: Reviewed & Not Pertinent Patient has suicidal ideation: No Patient has homicidal ideation: No - Past Medical History Cardiac Medical History: Reports: None Pulmonary Medical History: Reports: None EENT Medical History: Reports: None Neurological Medical History: Reports: None Endocrine Medical History: Reports: None Renal/ Medical History: Reports: None Malignancy Medical History: Reports: None GI Medical History: Reports: None Musculoskeletal Medical History: Reports None Skin Medical History: Reports None Psychiatric Medical History: Reports: Hx Anxiety, Hx Borderline Personality Disorder, Hx Depression, Hx Post Traumatic Stress Disorder Traumatic Medical History: Reports: None Infectious Medical History: Reports: None Surgical Hx: Negative Past Surgical History: Reports: None - Immunizations Immunizations up to date: Yes Review of Systems - Review of Systems Notes: I am unable to get a good review of systems because patient does not give me any history. Friend is doing the talking for her. She appears very anxious. Gastrointestinal: Abdominal pain Female Genitourinary: Vaginal bleeding Physical Exam - Vital signs Vitals: Temp Pulse Resp BP Pulse Ox 99.1 F 81 16 113/60 97 11/13/18 21:20 11/13/18 21:20 11/13/18 21:20 11/13/18 21:20 11/13/18 21:20 - General General appearance: Appears well, Alert In distress: None - Respiratory Respiratory status: No respiratory distress Chest status: Nontender Breath sounds: Normal Chest palpation: Normal - Cardiovascular Rhythm: Regular Heart sounds: Normal auscultation Murmur: No - Abdominal Inspection: Normal Distension: No distension Bowel sounds: Normal Tenderness: Other - It is difficult for me to tell if there is any tenderness. Patient is not very cooperative. She is stated to position. When I palpate the abdomen, I do not get any obvious conclusive evidence of tenderness. When I repalpated, she grimaces when I just lightly touch her. It is unclear if this is from tenderness or she is just anxious. Organomegaly: No organomegaly - Genitourinary External exam: Normal Speculum exam: Cervix closed, Vaginal discharge. No: Vaginal lacerations Vaginal bleeding: Mild Bimanuel exam: No: Cervical motion tender, Adnexal mass, Adnexal tenderness - Psychological Associated symptoms: Anxious - Skin Skin Temperature: Warm Skin Moisture: Dry Skin Color: Normal Course - Re-evaluation Re-evalutation: 11/13/18 22:23 Difficult evaluation. Differential diagnosis includes nonspecific abdominal pain versus ectopic if versus appendicitis versus pancreatitis versus colitis. It is really difficult I will have to get a CT scan ultrasound pending a test to figure out what is going on. 11/14/18 00:35 Patient reevaluated. Patient is doing well. Labs are unremarkable. CT scan ordered. 11/14/18 03:52 Patient reevaluated. Patient is doing well. Labs and CT reviewed. We will put her on Flagyl for bacterial vaginosis. She is stable for discharge. Follow-up discussed. - Vital Signs Vital signs: Temp Pulse Resp BP Pulse Ox 99.1 F 81 16 113/60 97 11/13/18 21:20 11/13/18 21:20 11/13/18 21:20 11/13/18 21:20 11/13/18 21:20 - Laboratory Result Diagrams: 11/13/18 22:07 11/13/18 22:07 Laboratory results interpreted by me: 11/13/18 22:50 Urine Blood MODERATE H Urine Urobilinogen 4.0 H Discharge - Discharge Clinical Impression: Dysfunctional uterine bleeding, Bacterial vaginosis, Vaginal yeast infection Abdominal pain Qualifiers: Abdominal location: unspecified location Qualified Code(s): R10.9 - Unspecified abdominal pain Condition: Good Disposition: HOME, SELF-CARE Instructions: Abdominal Pain ([facility]), Vaginal Bleeding ([facility]), Vaginosis, Bacterial ([facility]), Vaginal Yeast Infection ([facility]) Prescriptions: Metronidazole [Flagyl 500 mg Tablet] 500 mg PO BID #14 tablet Naproxen 500 mg PO BID PRN #14 tablet PRN Reason: Referrals: EDDIE ENRIQUE NP [Primary Care Provider] - Follow up as needed
[2018-11-13 22:46] LABS: ALBUMIN 4.3 g/dL (3.7-5.6); ALKALINE PHOSPHATASE 81 U/L (50-135); ANION GAP 9 (5-19); ASPARTATE AMINO TRANSFERASE 25 U/L (5-30); BILIRUBIN,DIRECT 0.1 mg/dL (0.0-0.4); BILIRUBIN,TOTAL 0.4 mg/dL (0.2-1.3); BLOOD UREA NITROGEN 9 mg/dL (7-20); CALCIUM 9.2 mg/dL (8.4-10.2); CARBON DIOXIDE 26 mmol/L (22-30); CHLORIDE 104 mmol/L (98-107); GLUCOSE 105 mg/dL (75-110); POTASSIUM 3.9 mmol/L (3.6-5.0); TOTAL PROTEIN 7.7 g/dL (6.3-8.2)
[2018-11-13 23:05] LABS: APPEARANCE,URINE CLEAR; BILIRUBIN,URINE NEGATIVE (NEGATIVE); COLOR,URINE YELLOW; GLUCOSE, URINE NEGATIVE (NEGATIVE); KETONES,URINE NEGATIVE (NEGATIVE); LEUKOCYTE ESTERASE,URINE NEGATIVE (NEGATIVE); NITRITE,URINE NEGATIVE (NEGATIVE); PROTEIN,URINE NEGATIVE (NEGATIVE); URINE SPECIFIC GRAVITY 1.013
[2018-11-13 23:28] LABS: URINE AMPHETAMINES SCREEN NEGATIVE; URINE BARBITURATES SCREEN NEGATIVE; URINE BENZODIAZEPINES SCREEN NEGATIVE; URINE COCAINE SCREEN NEGATIVE; URINE MARIJUANA (THC) SCREEN NEGATIVE; URINE METHADONE SCREEN NEGATIVE; URINE PHENCYCLIDINE SCREEN NEGATIVE
[2018-11-13 23:46] LABS: BACTERIA (WET MOUNT) 3+ BACTERIA SEEN; EPITHELIALS (WET MOUNT) 3+ EPITHELIALS SEEN; T.VAGINALIS (WET MOUNT) NO TRICHOMONAS SEEN; WBCS (WET MOUNT) 1+ WBCS SEEN; YEAST (WET MOUNT) YEAST SEEN
[2018-11-14] MEDS ORDERED: KETOROLAC TROMETHAMINE INJ/PF 30 MG/1 ML SDV IV ONE (00:35)
[2018-11-14 01:06] LABS: CHLAM PCR NOT DETECTED (NOT DETECT)
--- NOTE | 2018-11-14 02:48 | RADIOLOGY REPORT (SQ) ---
EXAM DESCRIPTION: CT ABDOMEN PELVIS WITH IV CONTRAST COMPLETED DATE/TME: 11/13/2018 23:35 CLINICAL HISTORY: 17 years, Female, generalized abdominal pain COMPARISON: Ultrasound 07/22/2018 TECHNIQUE: 381 Images stored on PACS. All CT scanners at this facility use dose modulation, iterative reconstruction, and/or weight based dosing when appropriate to reduce radiation dose to as low as reasonably achievable (ALARA). [facility]: Dose Right [facility]: CareDose [facility]: Dose Right [facility]: Teradose 4D [facility]: [employer] LIMITATIONS: None. FINDINGS: Limited evaluation of the lung bases is unremarkable. Osseous structures are grossly intact. The liver, spleen, adrenal glands, pancreas, kidneys are unremarkable. The gallbladder is present, contracted. No gross evidence for bowel obstruction. Normal appendix. No free air or free fluid IMPRESSION: No acute intra-abdominal/pelvic process TECHNICAL DOCUMENTATION: Quality ID # [id number]: Final reports with documentation of one or more dose reduction techniques (e.g., Automated exposure control, adjustment of the mA and/or kV according to patient size, use of iterative reconstruction technique) copyright 2011 [employer]- All Rights Reserved
[2018-11-14] MEDS ORDERED: METRONIDAZOLE 500 MG TABLET PO ONE (03:51)
[2018-11-14] MEDS ORDERED: FLUCONAZOLE 100 MG TABLET PO ONE (03:51)
[2018-11-14 04:16] VITALS: BP 121/81
== END 2018-11-14 04:17 | disposition home or self-care (01) ==
LOC: ER 21:15
DX: N76.0 Acute vaginitis (principal); B96.89 Other specified bacterial agents as the cause of diseases classified elsewhere; B37.3 Candidiasis of vulva and vagina; N93.8 Other specified abnormal uterine and vaginal bleeding; R10.30 Lower abdominal pain, unspecified; F17.210 Nicotine dependence, cigarettes, uncomplicated; Z88.5 Allergy status to narcotic agent; Z88.1 Allergy status to other antibiotic agents
CPT/HCPCS: 86900; 86901; 36415; 87210; 84702; 83690; 85025; 80053; 81001; 80307; 87491; 87591; 74177; J1885; J7030; 96361; 96374; 99284

== ENCOUNTER 2018-11-28 20:49 | Emergency (ER) | payer OTHER, MEDICAID ==
--- NOTE | 2018-11-28 20:58 | ER Document Report ---
ED Medical Screen (RME) - General Chief Complaint: Flank Pain Stated Complaint: ABDOMINAL PAIN WHEEZING Time Seen by Provider: 11/28/18 20:58 Primary Care Provider: EDDIE ENRIQUE NP [Primary Care Provider] - Follow up as needed Mode of Arrival: Ambulatory Information source: Patient Notes: 17-year-old female presented to ED for complaint pain in the back and abdomen. States she is vomited a couple times up to her mouth but it did not come all the way out. She denies any diarrhea. Patient is alert and oriented. She refuses to talk. Her lungs are clear to auscultation but she is breathing through her nose such that it sounds that she is wheezing but her lungs are clear. O2 sat is 98%. Patient denies smoking. She denies any history of asthma. I have greeted and performed a rapid initial assessment of this patient. A comprehensive ED assessment and evaluation of the patient, analysis of test results and completion of medical decision making process will be conducted by an additional ED providers. TRAVEL OUTSIDE OF THE [place] IN LAST 30 DAYS: No - Related Data Allergies/Adverse Reactions: codeine [Codeine] Allergy (Intermediate, Verified 08/29/18 10:49) RASH sulfamethoxazole [From Septra] Allergy (Intermediate, Verified 08/29/18 10:49) RASH trimethoprim [From Septra] Allergy (Verified 08/29/18 10:49) Past Medical History - Social History Family history: Reviewed & Not Pertinent Psychiatric Medical History: Reports: Hx Anxiety, Hx Bipolar Disorder, Hx Borderline Personality Disorder, Hx Depression, Hx Post Traumatic Stress Disorder - Immunizations Immunizations up to date: Yes Physical Exam - Vital signs Vitals: Temp Pulse Resp BP Pulse Ox 98.4 F 106 H 22 119/69 98 11/28/18 20:52 11/28/18 20:52 11/28/18 20:52 11/28/18 20:52 11/28/18 20:52 Course - Vital Signs Vital signs: Temp Pulse Resp BP Pulse Ox 98.4 F 106 H 22 119/69 98 11/28/18 20:52 11/28/18 20:52 11/28/18 20:52 11/28/18 20:52 11/28/18 20:52 Doctor's Discharge - Discharge Referrals: EDDIE ENRIQUE NP [Primary Care Provider] - Follow up as needed
[2018-11-28 22:03] LABS: ABSOLUTE BASOPHILS # (AUTO) 0.1 10^3/uL (0.0-0.2); ABSOLUTE EOSINOPHILS # (AUTO) 0.1 10^3/uL (0.0-0.6); ABSOLUTE LYMPHOCYTES (AUTO) 2.6 10^3/uL (0.5-4.7); ABSOLUTE MONOCYTES (AUTO) 0.8 10^3/uL (0.1-1.4); ABSOLUTE NEUT (AUTO) 4.5 10^3/uL (1.7-8.2); BASOPHILS % (AUTO) 0.7 % (0-2); EOSINOPHILS % (AUTO) 0.8 % (0-6); HEMATOCRIT 40.7 % (36.0-47.0); HEMOGLOBIN 13.7 g/dL (12.0-15.5); LYMPHOCYTES % (AUTO) 32.1 % (13-45); MEAN CORPUSCULAR HEMOGLOBIN 27.9 pg (27.0-33.4); MEAN CORPUSCULAR HGB CONC 33.7 g/dL (32.0-36.0); MEAN CORPUSCULAR VOLUME 83 fl (80-97); PLATELET COUNT 327 10^3/uL (150-450); RED BLOOD COUNT 4.92 10^6/uL (3.72-5.28); RED CELL DISTRIBUTION WIDTH 14.1 % (11.5-14.0); SEGMENTED NEUTROPHILS % (AUTO) 56.4 % (42-78); TOTAL CELLS COUNTED % (AUTO) 100 %
[2018-11-28 22:04] LABS: APPEARANCE,URINE SLIGHTLY-CLOUDY; BILIRUBIN,URINE NEGATIVE (NEGATIVE); COLOR,URINE YELLOW; GLUCOSE, URINE NEGATIVE (NEGATIVE); KETONES,URINE NEGATIVE (NEGATIVE); PROTEIN,URINE NEGATIVE (NEGATIVE); URINE SPECIFIC GRAVITY 1.015; UROBILINOGEN,URINE NEGATIVE mg/dL (<2.0)
[2018-11-28 22:37] LABS: ALBUMIN 4.5 g/dL (3.7-5.6); ALKALINE PHOSPHATASE 74 U/L (50-135); ANION GAP 13 (5-19); ASPARTATE AMINO TRANSFERASE 23 U/L (5-30); BILIRUBIN,DIRECT 0.2 mg/dL (0.0-0.4); BILIRUBIN,TOTAL 0.3 mg/dL (0.2-1.3); BLOOD UREA NITROGEN 9 mg/dL (7-20); CALCIUM 9.5 mg/dL (8.4-10.2); CARBON DIOXIDE 22 mmol/L (22-30); CHLORIDE 106 mmol/L (98-107); GLUCOSE 108 mg/dL (75-110); POTASSIUM 4.2 mmol/L (3.6-5.0); TOTAL PROTEIN 7.7 g/dL (6.3-8.2)
[2018-11-28] MEDS ORDERED: ACETAMINOPHEN 325 MG TABLET PO ONE (22:53)
[2018-11-28] MEDS ORDERED: KETOROLAC TROMETHAMINE 60 MG/2 ML SDV IM ONE (22:53)
--- NOTE | 2018-11-28 22:58 | ER Document Report ---
ED General - General Chief Complaint: Abdominal Pain Stated Complaint: ABDOMINAL PAIN WHEEZING Time Seen by Provider: 11/28/18 20:58 Primary Care Provider: EDDIE ENRIQUE NP [Primary Care Provider] - Follow up as needed Mode of Arrival: Ambulatory Information source: Patient, [facility], [facility] Records Notes: 17-year-old female with bipolar disorder, depression, anxiety presents with complaints of low back pain and abdominal pain that has been ongoing for 3 weeks. Patient describes the back pain as aching, throbbing and worse with lifting and certain movements. She states that she is supposed to have a 5 pound weight restriction at work but that they do not abide by this request. Patient denies any known injury to her back. She denies any hematuria, dysuria, urinary frequency, vaginal discharge, known trauma to the area. Patient was seen previously at the beginning of November for similar symptoms where she underwent a CAT scan which was normal, pelvic exam with STD testing which was also normal. TRAVEL OUTSIDE OF THE [place] IN LAST 30 DAYS: No - HPI Onset: Other Onset/Duration: Gradual, Intermittent, Persistent Quality of pain: Achy, Throbbing Severity: Moderate Pain Level: 2 Associated symptoms: denies: Chest pain, Nonproductive cough, Productive cough, Fever, Nausea, Vomiting, Shortness of breath Exacerbated by: Movement, Walking Relieved by: Denies Similar symptoms previously: Yes Recently seen / treated by doctor: Yes - Related Data Allergies/Adverse Reactions: codeine [Codeine] Allergy (Intermediate, Verified 08/29/18 10:49) RASH sulfamethoxazole [From Septra] Allergy (Intermediate, Verified 08/29/18 10:49) RASH trimethoprim [From Septra] Allergy (Verified 08/29/18 10:49) Past Medical History - General Information source: Patient - Social History Smoking Status: Never Smoker Chew tobacco use (# tins/day): No Frequency of alcohol use: None Drug Abuse: None Lives with: Family Family History: Reviewed & Not Pertinent Patient has suicidal ideation: No Patient has homicidal ideation: No Psychiatric Medical History: Reports: Hx Anxiety, Hx Bipolar Disorder, Hx Borderline Personality Disorder, Hx Depression, Hx Post Traumatic Stress Disorder - Immunizations Immunizations up to date: Yes Review of Systems - Review of Systems Notes: REVIEW OF SYSTEMS: CONSTITUTIONAL : Denies fever, chills, or sweats. Denies recent illness. Denies weight loss, recent hospitalizations. EENT: Denies visual changes, eye pain. Denies sore throat, oral lesions, difficulty swallowing. CARDIOVASCULAR: Denies chest pain. Denies palpitations. Denies lower extremity edema. RESPIRATORY: Denies cough. Denies shortness of breath, wheezing. GASTROINTESTINAL: Denies abdominal distention. Denies nausea, vomiting, or diarrhea. Denies blood in vomitus, stools, or per rectum. Denies black, tarry stools. Denies constipation. GENITOURINARY: Denies difficulty urinating, painful urination, frequency, blood in urine, or vaginal discharge. MUSCULOSKELETAL: Denies neck pain or stiffness. Denies joint pain or swelling. SKIN: Denies rash, lesions or sores. HEMATOLOGIC : Denies easy bruising or bleeding. LYMPHATIC: Denies swollen glands. NEUROLOGICAL: Denies confusion or altered mental status. Denies loss of consciousness. Denies dizziness or lightheadedness. Denies headache. Denies weakness or paralysis. Denies problems difficulty with ambulation, slurred speech. Denies sensory loss, numbness, or tingling. Denies seizures. PSYCHIATRIC: Denies anxiety or stress. Denies depression, suicidal ideation, or homicidal ideation. Denies visual or auditory hallucinations. Physical Exam - Vital signs Vitals: Temp Pulse Resp BP Pulse Ox 98.4 F 106 H 22 119/69 98 11/28/18 20:52 11/28/18 20:52 11/28/18 20:52 11/28/18 20:52 11/28/18 20:52 - Notes Notes: PHYSICAL EXAMINATION: GENERAL: Well-appearing, well-nourished and in no acute distress. HEAD: Atraumatic, normocephalic. EYES: Pupils equal round and reactive to light, extraocular movements intact, conjunctiva are normal. ENT: Nares patent, oropharynx clear without exudates. Moist mucous membranes. NECK: Normal range of motion, supple without lymphadenopathy LUNGS: Breath sounds clear to auscultation bilaterally and equal. No wheezes rales or rhonchi. HEART: Regular rate and rhythm without murmurs ABDOMEN: Soft, generalized tenderness no focal tenderness in the right lower quadrant, left lower quadrant., nondistended abdomen. No guarding, no rebound. No masses appreciated. Female : deferred Musculoskeletal: Normal range of motion, no pitting or edema. No cyanosis. NEUROLOGICAL: Cranial nerves grossly intact. Normal speech, normal gait. Normal sensory, motor exams PSYCH: Normal mood, normal affect. SKIN: Warm, Dry, normal turgor, no rashes or lesions noted. Course - Re-evaluation Re-evalutation: 11/29/18 00:38 Laboratory 11/28/18 11/28/18 11/28/18 21:25 21:25 21:25 WBC 8.0 RBC 4.92 Hgb 13.7 Hct 40.7 MCV 83 MCH 27.9 MCHC 33.7 RDW 14.1 H Plt Count 327 Lymph % (Auto) 32.1 Gove % (Auto) 10.0 Eos % (Auto) 0.8 Baso % (Auto) 0.7 Absolute Neuts (auto) 4.5 Absolute Lymphs (auto) 2.6 Absolute Monos (auto) 0.8 Absolute Eos (auto) 0.1 Absolute Basos (auto) 0.1 Seg Neutrophils % 56.4 Sodium 141.3 Potassium 4.2 Chloride 106 Carbon Dioxide 22 Anion Gap 13 BUN 9 Creatinine 0.64 Est GFR ( Amer) > 60 Est GFR (MDRD) Non-Af > 60 Glucose 108 Calcium 9.5 Total Bilirubin 0.3 Direct Bilirubin 0.2 Neonat Total Bilirubin Not Reportable Neonat Direct Bilirubin Not Reportable Neonat Indirect Bili Not Reportable AST 23 ALT 17 Alkaline Phosphatase 74 Total Protein 7.7 Albumin 4.5 Lipase Serum HCG, Qual NEGATIVE Urine Color Urine Appearance Urine pH Ur Specific Lucinda Urine Protein Urine Glucose (UA) Urine Ketones Urine Blood Urine Nitrite (Reflex) Urine Bilirubin Urine Urobilinogen Leukocyte Esterase Rfl Urine RBC (Auto) Urine Bacteria (Auto) Urine WBC (Reflex) Squamous Epi Cells Auto Urine Mucus (Auto) Urine Ascorbic Acid 11/28/18 11/28/18 21:25 21:25 WBC RBC Hgb Hct MCV MCH MCHC RDW Plt Count Lymph % (Auto) Gove % (Auto) Eos % (Auto) Baso % (Auto) Absolute Neuts (auto) Absolute Lymphs (auto) Absolute Monos (auto) Absolute Eos (auto) Absolute Basos (auto) Seg Neutrophils % Sodium Potassium Chloride Carbon Dioxide Anion Gap BUN Creatinine Est GFR ( Amer) Est GFR (MDRD) Non-Af Glucose Calcium Total Bilirubin Direct Bilirubin Neonat Total Bilirubin Neonat Direct Bilirubin Neonat Indirect Bili AST ALT Alkaline Phosphatase Total Protein Albumin Lipase 119.5 Serum HCG, Qual Urine Color YELLOW Urine Appearance SLIGHTLY-CLOUDY Urine pH 5.0 Ur Specific Lucinda 1.015 Urine Protein NEGATIVE Urine Glucose (UA) NEGATIVE Urine Ketones NEGATIVE Urine Blood NEGATIVE Urine Nitrite (Reflex) NEGATIVE Urine Bilirubin NEGATIVE Urine Urobilinogen NEGATIVE Leukocyte Esterase Rfl NEGATIVE Urine RBC (Auto) 1 Urine Bacteria (Auto) TRACE Urine WBC (Reflex) 1 Squamous Epi Cells Auto 6 Urine Mucus (Auto) OCC Urine Ascorbic Acid NEGATIVE Abdomen Ultrasound 11/28/18 22:52 IMPRESSION: 1. Contracted gallbladder with small amount of stones/sludge. Cannot exclude chronic cholecystitis. Depending on level of clinical suspicion, HIDA scan with ejection fraction may be helpful. 2. No biliary ductal distention. 3. Normal kidneys Renal Ultrasound 11/28/18 22:52 IMPRESSION: 1. Contracted gallbladder with small amount of stones/sludge. Cannot exclude chronic cholecystitis. Depending on level of clinical suspicion, HIDA scan with ejection fraction may be helpful. 2. No biliary ductal distention. 3. Normal kidneys Chest X-Ray 11/28/18 22:53 IMPRESSION: No evidence of acute cardiopulmonary disease. NUMBER OF VIEWS: TECHNIQUE: LIMITATIONS: None. FINDINGS: IMPRESSION: copyright 2010 [employer]- All Rights Reserved Temp Pulse Resp BP Pulse Ox 98.4 F 106 H 22 119/69 98 11/28/18 20:52 11/28/18 20:52 11/28/18 20:52 11/28/18 20:52 11/28/18 20:52 11/29/18 00:40 Patient presents right upper quadrant and epigastric abdominal pain . patient has had progressive worsening of right upper quadrant pain. Vitals at time of arrival and on multiple reassessments remain non-concerning. Laboratories do not demonstrate a significant leukocytosis, LFT derangements, elevated bilirubin, alkaline phosphatase, or an elevated lipase. A right upper quadrant ultrasound does not demonstrate evidence of acute cholecystitis. Patient is able to tolerate oral intake.At this time will discharge with return precautions and follow-up recommendations. Verbal discharge instructions given a the bedside and opportunity for questions given. Medication warnings reviewed. Patient is in agreement with this plan and has verbalized understanding of return precautions and the need for primary care follow-up in the next 24-72 hours. Patient was evaluated and treated as appropriate for the patient's presenting symptoms and complaint, with consideration of any critical or life threatening conditions that may be associated with their obtained history and exam as noted above. All results were discussed with patient. Patient provided the opportunity to ask questions, and express concerns. Patient was educated on treatments based on their presumed diagnosis as noted above. At this time we will discharge the patient with return precautions and follow-up recommendations. Verbal discharge instructions given a the bedside. Medication warnings reviewed. Patient is in agreement with this plan and has verbalized understanding of return precautions. After careful consideration I feel that that patient can be safely discharged from the emergency department, they were advised to followup with a primary care physician in 2-3 days. Dictation on this chart was performed using voice recognition software and may result in unintended grammatical, spelling, syntax or errors. - Vital Signs Vital signs: Temp Pulse Resp BP Pulse Ox 98.4 F 106 H 22 119/69 98 11/28/18 20:52 11/28/18 20:52 11/28/18 20:52 11/28/18 20:52 11/28/18 20:52 - Laboratory Result Diagrams: 11/28/18 21:25 11/28/18 21:25 Laboratory results interpreted by me: 11/28/18 21:25 RDW 14.1 H - Diagnostic Test Radiology reviewed: Image reviewed, Reports reviewed Discharge - Discharge Clinical Impression: Biliary colic symptom, Gallstones Condition: Good Disposition: HOME, SELF-CARE Instructions: Gallbladder Disease ([facility]) Additional Instructions: You have gallstones that are causing your symptoms. Be sure to avoid fat containing foods until you follow-up with a surgeon to have the gallbladder removed as eating these foods will trigger your pain. Please return to the emergency department if you develop a fever greater than 100.4F, persistent vomiting, worsening of your pain, or any other symptoms that are worrisome to you. Referrals: EDDEI ENRIQUE NP [Primary Care Provider] - Follow up as needed LUIS FELIPE VELÁSQUEZ MD [ACTIVE STAFF] - Follow up in 3-5 days
--- NOTE | 2018-11-28 23:57 | RADIOLOGY REPORT (SQ) ---
EXAM DESCRIPTION: XR CHEST 2 VIEWS COMPLETED DATE/TME: 11/28/2018 22:53 CLINICAL HISTORY: 17 years, Female, flank pain COMPARISON: EXAM DESCRIPTION: CLINICAL HISTORY: flank pain COMPARISON: 06/01/2018 FINDINGS: Two views of the chest are submitted. Cardiac silhouette appears normal. No focal parenchymal or pleural disease. No acute bony abnormality. There is no significant pulmonary vascular engorgement. IMPRESSION: No evidence of acute cardiopulmonary disease. NUMBER OF VIEWS: TECHNIQUE: LIMITATIONS: None. FINDINGS: IMPRESSION: copyright 2010 [employer]- All Rights Reserved
--- NOTE | 2018-11-29 00:18 | RADIOLOGY REPORT (SQ) ---
EXAM DESCRIPTION: [employer]Lex: US ABDOMEN LIMITED, US RETROPERITONEUM LIMITED CLINICAL HISTORY: 17 years Female; ruq pain TECHNIQUE: Right upper quadrant ultrasound was performed. COMPARISON: CT 11/14/2018 FINDINGS: Right upper quadrant: Pancreas: Visualized portions are unremarkable. Liver: 14 cm long. No ductal distention. Portal venous flow is hepatopedal, normal. Gallbladder: Contracted. The gallbladder was also contracted on the previous CT. There is some echogenic material within the gallbladder, along with several echogenic calculi. No pericholecystic fluid. No Camejo sign. Wall is 4 mm. Common bile duct: 3 mm. Retroperitoneum: Right kidney: 9.2 x 3.9 x 4.6 cm. No hydronephrosis. Left kidney: 9.7 x 5.2 x 5.5 cm. No hydronephrosis. Bladder: 16 mL, incompletely distended. Jets not visualized. IMPRESSION: 1. Contracted gallbladder with small amount of stones/sludge. Cannot exclude chronic cholecystitis. Depending on level of clinical suspicion, HIDA scan with ejection fraction may be helpful. 2. No biliary ductal distention. 3. Normal kidneys
[2018-11-29 00:59] VITALS: BP 116/62
== END 2018-11-29 00:58 | disposition home or self-care (01) ==
LOC: ER 20:49
DX: K80.50 Calculus of bile duct without cholangitis or cholecystitis without obstruction (principal); R06.2 Wheezing; R10.13 Epigastric pain; Z88.6 Allergy status to analgesic agent; Z88.3 Allergy status to other anti-infective agents
CPT/HCPCS: 36415; 83690; 84703; 85025; 80053; 81001; 71046; 76775; 76705; J1885; 96374; 99284; 99406

== ENCOUNTER 2018-12-01 23:06 | Emergency (ER) | payer OTHER, MEDICAID ==
--- NOTE | 2018-12-01 23:43 | ER Document Report ---
ED Medical Screen (RME) - General Chief Complaint: Abdominal Pain Stated Complaint: ABDOMINAL PAIN/HOT FLASHES Time Seen by Provider: 12/01/18 23:41 Primary Care Provider: EDDIE ENRIQUE NP [Primary Care Provider] - Follow up as needed Mode of Arrival: Wheelchair Information source: Patient Notes: 17-year-old female presented to ED for complaint of nausea vomiting right upper quadrant pain back pain headache and multiple other complaints. She was seen on Thursday diagnosed with gallstones and sludge. Last night she had spaghetti to eat. I have informed her that she cannot eat spaghetti until she gets the gallbladder removed if this is was causing her pain. Patient is alert oriented respirations regular and unlabored speaking in full sentences. Patient is nontoxic in appearance at this time. I have greeted and performed a rapid initial assessment of this patient. A comprehensive ED assessment and evaluation of the patient, analysis of test res ults and completion of medical decision making process will be conducted by an additional ED providers. TRAVEL OUTSIDE OF THE [place] IN LAST 30 DAYS: No - Related Data Allergies/Adverse Reactions: codeine [Codeine] Allergy (Intermediate, Verified 12/01/18 23:41) RASH sulfamethoxazole [From Septra] Allergy (Intermediate, Verified 12/01/18 23:41) RASH trimethoprim [From Septra] Allergy (Verified 12/01/18 23:41) Past Medical History - Social History Family history: Reviewed & Not Pertinent Psychiatric Medical History: Reports: Hx Anxiety, Hx Bipolar Disorder, Hx Borderline Personality Disorder, Hx Depression, Hx Post Traumatic Stress Disorder - Immunizations Immunizations up to date: Yes Physical Exam - Vital signs Vitals: Temp Pulse Resp BP Pulse Ox 98.1 F 80 20 103/70 98 12/01/18 23:27 12/01/18 23:27 12/01/18 23:27 12/01/18 23:27 12/01/18 23:27 Course - Vital Signs Vital signs: Temp Pulse Resp BP Pulse Ox 98.1 F 80 20 103/70 98 12/01/18 23:27 12/01/18 23:27 12/01/18 23:27 12/01/18 23:27 12/01/18 23:27 Doctor's Discharge - Discharge Referrals: EDDIE ENRIQUE NP [Primary Care Provider] - Follow up as needed
[2018-12-02 00:01] LABS: ABSOLUTE BASOPHILS # (AUTO) 0.1 10^3/uL (0.0-0.2); ABSOLUTE EOSINOPHILS # (AUTO) 0.1 10^3/uL (0.0-0.6); ABSOLUTE LYMPHOCYTES (AUTO) 3.2 10^3/uL (0.5-4.7); ABSOLUTE MONOCYTES (AUTO) 0.8 10^3/uL (0.1-1.4); ABSOLUTE NEUT (AUTO) 5.3 10^3/uL (1.7-8.2); BASOPHILS % (AUTO) 1.2 % (0-2); EOSINOPHILS % (AUTO) 1.2 % (0-6); HEMOGLOBIN 13.5 g/dL (12.0-15.5); LYMPHOCYTES % (AUTO) 33.1 % (13-45); MEAN CORPUSCULAR HGB CONC 33.7 g/dL (32.0-36.0); MEAN CORPUSCULAR VOLUME 83 fl (80-97); MONOCYTES % (AUTO) 8.9 % (3-13); PLATELET COUNT 300 10^3/uL (150-450); RED BLOOD COUNT 4.82 10^6/uL (3.72-5.28); RED CELL DISTRIBUTION WIDTH 14.2 % (11.5-14.0); SEGMENTED NEUTROPHILS % (AUTO) 55.6 % (42-78); TOTAL CELLS COUNTED % (AUTO) 100 %; WHITE BLOOD COUNT 9.5 10^3/uL (4.0-10.5)
[2018-12-02 00:19] LABS: ALBUMIN 4.5 g/dL (3.7-5.6); ALKALINE PHOSPHATASE 75 U/L (50-135); ANION GAP 10 (5-19); ASPARTATE AMINO TRANSFERASE 23 U/L (5-30); BILIRUBIN,TOTAL 0.4 mg/dL (0.2-1.3); BLOOD UREA NITROGEN 9 mg/dL (7-20); CALCIUM 9.6 mg/dL (8.4-10.2); CARBON DIOXIDE 25 mmol/L (22-30); CHLORIDE 102 mmol/L (98-107); GLUCOSE 89 mg/dL (75-110); POTASSIUM 4.1 mmol/L (3.6-5.0); TOTAL PROTEIN 7.6 g/dL (6.3-8.2)
--- NOTE | 2018-12-02 00:43 | RADIOLOGY REPORT (SQ) ---
US ABDOMEN LIMITED EXAM DATE: 12/01/2018 11:43 PM CDT HISTORY: Right upper quadrant pain. COMPARISON: None. TECHNIQUE: Grayscale and color Doppler imaging of the right upper quadrant was performed. FINDINGS: The liver has normal echotexture without focal lesion identified. The main portal vein has normal hepatopetal flow. There is suggestion of a small gallstone in the lumen. No pericholecystic fluid or gallbladder wall thickening. The common bile duct is normal caliber. The visualized portions of the pancreas are unremarkable. No hydronephrosis or shadowing renal stones are identified. The right kidney is normal in size. The visualized portions of the IVC and aorta are patent. IMPRESSION: Cholelithiasis without evidence of acute cholecystitis.
[2018-12-02 01:37] LABS: APPEARANCE,URINE SLIGHTLY-CLOUDY; BILIRUBIN,URINE NEGATIVE (NEGATIVE); COLOR,URINE YELLOW; GLUCOSE, URINE NEGATIVE (NEGATIVE); KETONES,URINE TRACE mg/dL (NEGATIVE); LEUKOCYTE ESTERASE,URINE NEGATIVE (NEGATIVE); NITRITE,URINE NEGATIVE (NEGATIVE); PROTEIN,URINE 30 mg/dL (NEGATIVE); URINE SPECIFIC GRAVITY 1.024
[2018-12-02] MEDS ORDERED: PROMETHAZINE HCL 25 MG TABLET PO ONE (04:17)
[2018-12-02] MEDS ORDERED: OXYCODONE-ACETAMINOPHEN 5-325 MG TABLET PO ONE (04:17)
--- NOTE | 2018-12-02 04:23 | ER Document Report ---
ED General - General Chief Complaint: Abdominal Pain Stated Complaint: ABDOMINAL PAIN/HOT FLASHES Time Seen by Provider: 12/01/18 23:41 Primary Care Provider: [facility] [Provider Group] - Follow up as needed EDDIE ENRIQUE NP [Primary Care Provider] - Follow up as needed Mode of Arrival: Wheelchair Notes: Patient is a 17-year-old female that comes to the emergency department for chief complaint of pain in her abdomen, she states that the pain was sharp initially and in the upper general to mid abdomen but then "worked its way down and then out to the rest of the body". She states she also has a lot of pain when she tries to bend over and pick anything up. She states this is been intermittent. She denies fever/chills, nausea/vomiting. She states that she has a family history of gallbladder disease and was told she has gallstones. She was able to eat several times today. She denies any surgeries. She states the only medication she takes are Prozac and Latuda. TRAVEL OUTSIDE OF THE [place] IN LAST 30 DAYS: No - Related Data Allergies/Adverse Reactions: codeine [Codeine] Allergy (Intermediate, Verified 12/01/18 23:41) RASH sulfamethoxazole [From Septra] Allergy (Intermediate, Verified 12/01/18 23:41) RASH trimethoprim [From Septra] Allergy (Verified 12/01/18 23:41) Past Medical History - General Information source: Patient - Social History Smoking Status: Never Smoker Drug Abuse: None Lives with: Family Family History: Reviewed & Not Pertinent Patient has suicidal ideation: No Patient has homicidal ideation: No Psychiatric Medical History: Reports: Hx Anxiety, Hx Bipolar Disorder, Hx Borderline Personality Disorder, Hx Depression, Hx Post Traumatic Stress Disorder - Immunizations Immunizations up to date: Yes Review of Systems - Review of Systems Constitutional: See HPI EENT: No symptoms reported Cardiovascular: No symptoms reported Respiratory: No symptoms reported Gastrointestinal: See HPI Genitourinary: No symptoms reported Female Genitourinary: No symptoms reported Musculoskeletal: No symptoms reported Skin: No symptoms reported Hematologic/Lymphatic: No symptoms reported Neurological/Psychological: No symptoms reported Physical Exam - Vital signs Vitals: Temp Pulse Resp BP Pulse Ox 98.1 F 80 20 103/70 98 12/01/18 23:27 12/01/18 23:27 12/01/18 23:27 12/01/18 23:27 12/01/18 23:27 - Notes Notes: GENERAL: Alert, interacts well. No acute distress. HEAD: Normocephalic, atraumatic. EYES: Pupils equal, round, and reactive to light. Extraocular movements intact. ENT: Oral mucosa moist, tongue midline. Oropharynx unremarkable. Airway patent. NECK: Full range of motion. Supple. Trachea midline. LUNGS: Clear to auscultation bilaterally, no wheezes, rales, or rhonchi. No respiratory distress. HEART: Regular rate and rhythm. No murmur ABDOMEN: No specific tender noted, very minimal generalized tenderness, bowel sounds present, no rigidity or guarding, no distention. GENITOURINARY: Deferred EXTREMITIES: Moves all 4 extremities spontaneously. No edema, normal radial and dorsalis pedis pulses bilaterally. No cyanosis. BACK: no cervical, thoracic, lumbar midline tenderness. No saddle anesthesia, normal distal neurovascular exam. Moves all extremities in full range of motion. NEUROLOGICAL: Alert and oriented x3. Normal speech. Cranial nerves II through XII grossly intact. PSYCH: Very talkative, occasionally becomes irritable but this resolves quickly as well SKIN: Warm, dry, normal turgor. No rashes or lesions noted. Course - Re-evaluation Re-evalutation: Patient has slightly bizarre description of her symptoms. She does not have any right upper quadrant pain on my evaluation. Her abdomen is benign. She is very well-appearing and very talkative. Her recent ultrasound did show cholelithiasis without cholecystitis. CBC, chemistry, lipase unremarkable. Vital signs unremarkable. Patient is able to eat without difficulty. I did discuss the patient that some of her symptoms sound like gallbladder pathology, however her remaining symptoms otherwise are uncertain. Despite this I have very low suspicion of acute/emergent etiology based on her vital signs and appearance. I discussed with patient. Discussed treatment options including Toradol, importance of surgical clinic follow-up because of her gallbladder, importance of primary care follow-up because of her generalized symptoms, and return precautions which were discussed in detail. Patient states understanding and agreement. Stable at time of discharge. - Vital Signs Vital signs: Temp Pulse Resp BP Pulse Ox 97.9 F 78 15 135/76 H 100 12/02/18 04:30 12/02/18 04:30 12/02/18 04:30 12/02/18 04:30 12/02/18 04:30 - Laboratory Result Diagrams: 12/01/18 23:49 12/01/18 23:49 Laboratory results interpreted by me: 12/01/18 12/01/18 12/02/18 23:49 23:49 01:00 RDW 14.2 H Sodium 136.9 L Urine Protein 30 H Urine Ketones TRACE H Urine Urobilinogen 4.0 H Discharge - Discharge Clinical Impression: Generalized body aches Abdominal pain Qualifiers: Abdominal location: generalized Qualified Code(s): R10.84 - Generalized abdominal pain Condition: Stable Disposition: HOME, SELF-CARE Additional Instructions: You do have gallstones but no signs of a gallbladder infection or obstruction at this time. This is most likely the cause of your pain after eating and upper abdominal pain but does not explain the generalized body aches and weakness that you are getting. I recommend that you avoid any fatty, fried, greasy foods because these are very likely to cause gallbladder pain, follow-up with the general surgery clinic referral for management/removal of the gallbladder. Take the Toradol if needed for gallbladder related pain. Follow-up with primary care for additional evaluation of your symptoms general. Return if you worsen including vomiting, severe worsening pain, fever of 100.4 greater, or any other concerning or worsening symptoms. Prescriptions: Ketorolac Tromethamine [Toradol 10 mg Tablet] 10 mg PO Q8HP PRN #24 tablet PRN Reason: Forms: Return to School, Return to Work Referrals: EDDIE ENRIQUE NP [Primary Care Provider] - Follow up as needed [facility] [Provider Group] - Follow up as needed
[2018-12-02 05:20] VITALS: BP 135/76
== END 2018-12-02 04:30 | disposition home or self-care (01) ==
LOC: ER 23:06
DX: M79.10 Myalgia, unspecified site (principal); R10.84 Generalized abdominal pain; Z88.6 Allergy status to analgesic agent; Z88.3 Allergy status to other anti-infective agents
CPT/HCPCS: 36415; 76705; 80053; 81001; 83690; 85025

== ENCOUNTER 2018-12-16 18:34 | Emergency (ER) | payer OTHER, MEDICAID ==
--- NOTE | 2018-12-16 19:45 | ER Document Report ---
ED Medical Screen (RME) - General Chief Complaint: Shortness Of Breath Stated Complaint: ASTHMA ATTACK Time Seen by Provider: 12/16/18 19:40 Primary Care Provider: EDDIE ENRIQUE NP [Primary Care Provider] - Follow up as needed Mode of Arrival: Ambulatory Information source: Patient Notes: 18-year-old female presented to ED for complaint of asthma exacerbation. She states she was just recently diagnosed with asthma and started on 2 inhalers one area twice a day and 1 every 4 hours as needed. Refilled pro-air HFA 90 mcg on 12/15/2018 and Flovent 4 mcg on 12/10/2018 and a Pro Air HFA 90 mcg grams on 12/10/2018. She lost her first Pro Air and got a second replacement inhaler. She states she got these prescriptions from [facility]. She states whenever she has a very busy day and she can take a break she gets short of breath and needs her inhaler more. I have greeted and performed a rapid initial assessment of this patient. A comprehensive ED assessment and evaluation of the patient, analysis of test results and completion of medical decision making process will be conducted by an additional ED providers. TRAVEL OUTSIDE OF THE [place] IN LAST 30 DAYS: No - Related Data Allergies/Adverse Reactions: codeine [Codeine] Allergy (Intermediate, Verified 12/01/18 23:41) RASH sulfamethoxazole [From Septra] Allergy (Intermediate, Verified 12/01/18 23:41) RASH trimethoprim [From Septra] Allergy (Verified 12/01/18 23:41) Past Medical History - Social History Family history: Reviewed & Not Pertinent Pulmonary Medical History: Reports: Hx Asthma Psychiatric Medical History: Reports: Hx Anxiety, Hx Bipolar Disorder, Hx Borderline Personality Disorder, Hx Depression, Hx Post Traumatic Stress Disorder, Other - panic - Immunizations Immunizations up to date: Yes Physical Exam - Vital signs Vitals: Temp Pulse Resp BP Pulse Ox 98.5 F 98 18 113/72 98 12/16/18 18:49 12/16/18 18:49 12/16/18 18:49 12/16/18 18:49 12/16/18 18:49 Course - Vital Signs Vital signs: Temp Pulse Resp BP Pulse Ox 98.5 F 98 18 113/72 98 12/16/18 18:49 12/16/18 18:49 12/16/18 18:49 12/16/18 18:49 12/16/18 18:49 Doctor's Discharge - Discharge Referrals: EDDIE ENRIQUE NP [Primary Care Provider] - Follow up as needed
--- NOTE | 2018-12-16 20:41 | RADIOLOGY REPORT (SQ) ---
EXAM DESCRIPTION: Two-view chest x-ray CLINICAL HISTORY: 18 years Female, short of breath COMPARISON: 06/01/2018. FINDINGS: Cardiomediastinal silhouette is not enlarged. No suspicious lung pleural bone abnormalities. IMPRESSION: Negative chest x-ray.
--- NOTE | 2018-12-17 02:23 | ER Document Report ---
HPI - HPI Time Seen by Provider: 12/16/18 19:40 Pain Level: Denies Context: Patient is a 18-year-old female that comes to the emergency department for chief complaint of intermittent wheezing throughout the day and since yesterday. She states she has required her inhaler multiple times a day including multiple times at work and therefore came in for evaluation. She states she feels better at this time however. She denies fever, chest pain, vomiting, or any other complaints. She denies smoking. She does report a history of asthma and was recently started on a steroid inhaler in addition to her rescue inhaler. She states most the time these help but intermittently they were not helping today. She denies any other complaints. She denies . - REPRODUCTIVE Reproductive: DENIES: : Past Medical History - General Information source: Patient - Social History Smoking Status: Never Smoker Frequency of alcohol use: None Drug Abuse: None Lives with: Family Family History: Reviewed & Not Pertinent Patient has suicidal ideation: No Patient has homicidal ideation: No Pulmonary Medical History: Reports: Hx Asthma Psychiatric Medical History: Reports: Hx Anxiety, Hx Bipolar Disorder, Hx Borderline Personality Disorder, Hx Depression, Hx Post Traumatic Stress Disorder, Other - panic - Immunizations Immunizations up to date: Yes Vertical Provider Document - CONSTITUTIONAL General Appearance: WD/WN, No Apparent Distress - INFECTION CONTROL TRAVEL OUTSIDE OF THE [place] IN LAST 30 DAYS: No - HEENT HEENT: Atraumatic, Normal ENT Exam, Normocephalic - NECK Neck: Normal Inspection - RESPIRATORY Respiratory: Breath Sounds Normal, No Respiratory Distress. negative: Wheezing - CARDIOVASCULAR Cardiovascular: Regular Rate, Regular Rhythm - GI/ABDOMEN Gastrointestinal: Abdomen Soft, Abdomen Non-Tender - BACK Back: Normal Inspection - MUSCULOSKELETAL/EXTREMETIES Musculoskeletal/Extremeties: MAEW, FROM, Non-Tender - NEURO Level of Consciousness: Awake - Sleeping but easily aroused and becomes awake and alert, Alert, Appropriate - DERM Integumentary: Warm, Dry, No Rash Course - Re-evaluation Re-evalutation: Patient well-appearing with clear lungs now. I did review chest x-ray from triage and this was negative. No hypoxia, no concerning vital signs, no fever. Patient sleeping and easily aroused on exam. Exam is very unremarkable. Discussed with patient. She already has multiple inhalers. Discussed options. She states she has been having intermittent exacerbations which are frequent with wheezing, as result we have placed on steroids, she will follow-up with primary care, discussed return precautions. Patient and significant other state understanding and agreement. Patient requests work note through the weekend. - Vital Signs Vital signs: Temp Pulse Resp BP Pulse Ox 98.5 F 98 18 113/72 98 12/16/18 18:49 12/16/18 18:49 12/16/18 18:49 12/16/18 18:49 12/16/18 18:49 Discharge - Discharge Clinical Impression: Shortness of breath Asthma exacerbation Qualifiers: Asthma severity: mild Asthma persistence: intermittent Qualified Code(s): J45.21 - Mild intermittent asthma with (acute) exacerbation Condition: Stable Disposition: HOME, SELF-CARE Additional Instructions: Your chest x-ray does not show any concerning findings. Take the prednisone as prescribed for your recurrent asthma symptoms. Take your inhaler with the spacer as prescribed if needed. Follow-up with primary care for additional management. Return if you worsen including developing fever, difficulty breathing, or any other concerning or worsening symptoms. Prescriptions: Prednisone [Deltasone 20 mg Tablet] 2 tab PO DAILY 5 Days #10 tablet Forms: Return to Work Referrals: RENATO RUIZ PA-C [Primary Care Provider] - Follow up as needed
[2018-12-17 04:04] VITALS: BP 106/69
== END 2018-12-17 02:30 | disposition home or self-care (01) ==
LOC: ER 18:34
DX: J45.21 Mild intermittent asthma with (acute) exacerbation (principal)
CPT/HCPCS: 71046; 99284

== ENCOUNTER 2019-01-08 03:03 | Emergency (ER) | payer OTHER, MEDICAID ==
--- NOTE | 2019-01-08 03:55 | RADIOLOGY REPORT (SQ) ---
EXAM DESCRIPTION: XR CHEST 1 VIEW COMPLETED DATE/TME: 01/08/2019 00:00 CLINICAL HISTORY: 18 years, Female, congestion COMPARISON: 12/16/2018 chest NUMBER OF VIEWS: 1 TECHNIQUE: Portable chest LIMITATIONS: None. FINDINGS: Heart size normal. Lungs clear. No pneumothorax IMPRESSION: Negative chest copyright 2010 [employer]- All Rights Reserved
[2019-01-08 04:29] LABS: A TYPE INFLUENZA AG NEGATIVE (NEGATIVE); B INFLUENZA AG NEGATIVE (NEGATIVE)
--- NOTE | 2019-01-08 06:41 | ER Document Report ---
ED General - General Chief Complaint: Cold Symptoms Stated Complaint: COUGH Time Seen by Provider: 01/08/19 06:41 Primary Care Provider: RENATO RUIZ PA-C [Primary Care Provider] - Follow up as needed Notes: 18 year old female current everyday smoker is here with 1 week of "flu like symptoms." Cough - generally nonproductive - achiness and sore throat. No rash. Unsure if sick contacts. TRAVEL OUTSIDE OF THE [place] IN LAST 30 DAYS: No - HPI Onset: Just prior to arrival Quality of pain: No pain Severity: Moderate Pain Level: 2 Associated symptoms: None Exacerbated by: Denies Relieved by: Denies - Related Data Allergies/Adverse Reactions: codeine [Codeine] Allergy (Intermediate, Verified 12/01/18 23:41) RASH sulfamethoxazole [From Septra] Allergy (Intermediate, Verified 12/01/18 23:41) RASH trimethoprim [From Septra] Allergy (Verified 12/01/18 23:41) Past Medical History - Social History Smoking Status: Current Some Day Smoker Family History: Reviewed & Not Pertinent Patient has suicidal ideation: No Patient has homicidal ideation: No Pulmonary Medical History: Reports: Hx Asthma Psychiatric Medical History: Reports: Hx Anxiety, Hx Bipolar Disorder, Hx Borderline Personality Disorder, Hx Depression, Hx Post Traumatic Stress Disorder - Immunizations Immunizations up to date: Yes Review of Systems - Review of Systems Constitutional: No symptoms reported EENT: No symptoms reported Cardiovascular: No symptoms reported Respiratory: See HPI, Cough, Hurts to breathe Gastrointestinal: No symptoms reported Genitourinary: No symptoms reported Female Genitourinary: No symptoms reported Musculoskeletal: No symptoms reported Skin: No symptoms reported Hematologic/Lymphatic: No symptoms reported Neurological/Psychological: No symptoms reported Physical Exam - Vital signs Vitals: Temp Pulse Resp BP Pulse Ox 98.4 F 98 22 H 131/76 H 99 01/08/19 03:13 01/08/19 03:13 01/08/19 03:13 01/08/19 03:13 01/08/19 03:13 Interpretation: Normal - General General appearance: Appears well, Alert - HEENT Head: Normocephalic, Atraumatic Eyes: Normal Pupils: PERRL - Respiratory Respiratory status: No respiratory distress Chest status: Nontender Breath sounds: Decreased air movement. No: Normal Chest palpation: Normal - Cardiovascular Rhythm: Regular Heart sounds: Normal auscultation Murmur: No - Abdominal Inspection: Normal Distension: No distension Bowel sounds: Normal Tenderness: Nontender Organomegaly: No organomegaly - Back Back: Normal, Nontender - Extremities General upper extremity: Normal inspection, Nontender, Normal color, Normal ROM, Normal temperature General lower extremity: Normal inspection, Nontender, Normal color, Normal ROM, Normal temperature, Normal weight bearing. No: Arin's sign - Neurological Neuro grossly intact: Yes Cognition: Normal Orientation: AAOx4 [place] Coma Scale Eye Opening: Spontaneous [place] Coma Scale Verbal: Oriented [place] Coma Scale Motor: Obeys Commands [place] Coma Scale Total: 15 Speech: Normal Motor strength normal: LUE, RUE, LLE, RLE Sensory: Normal - Psychological Associated symptoms: Normal affect, Normal mood - Skin Skin Temperature: Warm Skin Moisture: Dry Skin Color: Normal Course - Re-evaluation Re-evalutation: 01/08/19 13:32 MDM 18 year old smoker with wheeze and uri on exam. Feels better after neb treatment. - Vital Signs Vital signs: Temp Pulse Resp BP Pulse Ox 98.2 F 112 H 18 130/73 H 98 01/08/19 08:00 01/08/19 08:00 01/08/19 08:00 01/08/19 08:00 01/08/19 08:00 - Diagnostic Test Radiology reviewed: Reports reviewed Discharge - Discharge Clinical Impression: Acute sinusitis Qualifiers: Sinusitis location: maxillary Recurrence: non-recurrent Qualified Code(s): J01.00 - Acute maxillary sinusitis, unspecified Condition: Good Disposition: HOME, SELF-CARE Instructions: Acetaminophen, Sinusitis ([facility]) Additional Instructions: Stop smoking. Rest. Plenty of fluids. Please return here for any problems or any concerns. Prescriptions: Fluconazole [Diflucan] 150 mg PO ONCE PRN #1 tablet PRN Reason: Cephalexin Monohydrate [Keflex 500 mg Capsule] 500 mg PO TID #30 capsule Prednisone [Sterapred Ds] 1 pkg PO ASDIR PRN 12 Days tab.ds.pk PRN Reason: Referrals: RENATO RUIZ PA-C [Primary Care Provider] - Follow up as needed
[2019-01-08] MEDS ORDERED: IPRATROPIUM/ALBUTEROL 0.5-2.5 MG/3 ML AMPUL NEB ONE (06:59)
[2019-01-08] MEDS ORDERED: PREDNISONE 20 MG TABLET PO ONE (06:59)
[2019-01-08 08:00] VITALS: BP 130/73
== END 2019-01-08 08:00 | disposition home or self-care (01) ==
LOC: ER 03:03
DX: J01.00 Acute maxillary sinusitis, unspecified (principal); R05 Cough; F17.200 Nicotine dependence, unspecified, uncomplicated; Z88.6 Allergy status to analgesic agent; Z88.3 Allergy status to other anti-infective agents
CPT/HCPCS: 94640; 99283; 87804; 71045; J7512; J7620

== ENCOUNTER 2019-02-10 12:06 | Day surgery (SDC) | payer OTHER, MEDICAID ==
[2019-02-04 09:49] LABS: HEMATOCRIT 41.3 % (36.0-47.0); HEMOGLOBIN 14.5 g/dL (12.0-15.5); MEAN CORPUSCULAR HEMOGLOBIN 28.7 pg (27.0-33.4); MEAN CORPUSCULAR HGB CONC 35.1 g/dL (32.0-36.0); MEAN CORPUSCULAR VOLUME 82 fl (80-97); PLATELET COUNT 293 10^3/uL (150-450); RED BLOOD COUNT 5.04 10^6/uL (3.72-5.28); RED CELL DISTRIBUTION WIDTH 14.3 % (11.5-14.0); WHITE BLOOD COUNT 10.5 10^3/uL (4.0-10.5)
[2019-02-04 10:16] LABS: ALBUMIN 4.6 g/dL (3.5-5.0); ALKALINE PHOSPHATASE 74 U/L (38-126); AMYLASE 93 U/L (30-110); ANION GAP 13 (5-19); ASPARTATE AMINO TRANSFERASE 20 U/L (14-36); BILIRUBIN,DIRECT 0.2 mg/dL (0.0-0.4); BILIRUBIN,TOTAL 0.5 mg/dL (0.2-1.3); BLOOD UREA NITROGEN 9 mg/dL (7-20); CALCIUM 9.6 mg/dL (8.4-10.2); CARBON DIOXIDE 21 mmol/L (22-30); CHLORIDE 106 mmol/L (98-107); GLUCOSE 84 mg/dL (75-110); POTASSIUM 4.5 mmol/L (3.6-5.0)
[~2019-02-10 12:06] MED LIST: ACETAMINOPHEN 325 MG TABLET PO PRN; CEFAZOLIN 1 GM/D5W RTU 1 GM/50 ML RTUPB IV PRN; DEXAMETHASONE SOD PHOSPHATE INJ 4 MG/1 ML VIAL ONE; EPHEDRINE SULFATE INJ 50 MG/1 ML AMPULE ONE; FENTANYL CITRATE INJ/PF 100 MCG/2 ML AMPUL ONE; GLYCOPYRROLATE 1 MG/5 ML VIAL ONE; KETOROLAC TROMETHAMINE 60 MG/2 ML SDV ONE; LACTATED RINGERS 1000 ML IV PRN; LIDOCAINE 0.5% INJ-PF (5 MG/ML) 50 ML SDV SUBCUT PRN; METRONIDAZOLE 500 MG/NS RTU 500 MG/100 ML RTUPB IV PRN; MIDAZOLAM 2 MG/2 ML INJ ONE; NEOSTIGMINE METHYLSULFATE 10 MG/10 ML VIAL ONE; ONDANSETRON HCL INJ/PF 4 MG/2 ML SDV ONE; PROPOFOL INJ 200 MG/20 ML VIAL IV ONE; SUCCINYLCHOLINE CHLORIDE INJ 200 MG/10 ML VIAL ONE; VECURONIUM BROMIDE INJ 10 MG VIAL IV ONE
[2019-02-10] MEDS ORDERED: FAMOTIDINE INJ/PF 20 MG/2 ML SDV IV ONE (12:32)
[2019-02-10] MEDS ORDERED: SCOPOLAMINE HYDROBROMIDE 1.5 MG PATCH.TD72 ONE (12:33)
[2019-02-10] MEDS ORDERED: ALBUTEROL SULFATE 0.083% NEB 2.5 MG/3 ML AMPUL NEB ONE (12:35)
[2019-02-10] MEDS ORDERED: CEFAZOLIN 1 GM/D5W RTU 1 GM/50 ML RTUPB IV ONE (12:43)
[2019-02-10] MEDS ORDERED: METRONIDAZOLE 500 MG/NS RTU 500 MG/100 ML RTUPB IV ONE (12:43)
[2019-02-10] MEDS ORDERED: BUPIVACAINE INJ/PF LIPOSOME/PF 266 MG/20 ML SDV ONE (12:46)
[2019-02-10] MEDS ORDERED: ONDANSETRON HCL INJ/PF 4 MG/2 ML SDV IV PRN (13:35)
[2019-02-10] MEDS ORDERED: MEPERIDINE HCL/PF INJ 25 MG/1 ML DISP.SYRIN IV PRN (13:35)
[2019-02-10] MEDS ORDERED: OXYCODONE-ACETAMINOPHEN 5-325 MG TABLET PO PRN ×2 (13:35)
[2019-02-10] MEDS ORDERED: DIPHENHYDRAMINE HCL 50 MG/ML VIAL IV PRN (13:35)
[2019-02-10] MEDS ORDERED: PROMETHAZINE HCL INJ 25 MG/1 ML VIAL IV PRN ×2 (13:35)
[2019-02-10] MEDS ORDERED: MORPHINE SULFATE 10 MG/ML INJ IV PRN (13:35)
[2019-02-10] MEDS ORDERED: FENTANYL CITRATE INJ/PF 100 MCG/2 ML AMPUL IV PRN ×3 (13:35)
--- NOTE | 2019-02-10 14:11 | Operative Report ---
Nonrecallable Operative Report DATE OF SURGERY: 02/10/19 PREOPERATIVE DIAGNOSIS: cholelilthiasis POSTOPERATIVE DIAGNOSIS: cholelithiasis OPERATION: Laparoscopic cholecystectomy SURGEON: MARGOTH BARNES ANESTHESIA: GA TISSUE REMOVED OR ALTERED: Gallbladder COMPLICATIONS: None INTRAOPERATIVE FINDINGS: See dictation PROCEDURE: After obtaining informed consent, the patient was taken to the operating room. General Anesthesia was induced; the arms were extended, and the abdomen was exposed, and prepped and draped in a sterile fashion. Instrumentation was set up for laparoscopic cholecystectomy. Surgical plan and surgical timeout were conducted. A vertical incision was made above the umbilicus, and a verres needle was inserted uneventfully into the peritoneal cavity. Pneumoperitoneum was established. The verres needle was removed and a 10mm trocar was inserted and a 10 mm laparoscope was inserted. Visualization of the peritoneal cavity confirmed safe uneventful entry. Under direct visualization 3 additional 5 mm ports were established, one in the subxiphoid position and second in the subcostal posi tion. Visualization of the hepatobiliary anatomy revealed no anatomic variations. A grasper was placed on the fundus of the gallbladder and the gallbladder is elevated over the right surface of the liver; a second grasper was used to grasp the infundibulum of the gallbladder. The neck of the gallbladder and junction with the cystic duct was dissected out. The Cystic artery was in its usual location medial and cephalad to the cystic duct. The cystic artery was surrounded with a right angle clamp, clipped twice proximally and divided with laparoscopic scissors. We now opened the triangle of Calot by dividing the peritoneal reflection on both the medial and lateral sides of the cystic duct infundibular junction. The critical view was obtained. We now milked the cystic duct of any possible stones, clipped the cystic duct approximately 2 times once distally and divided with scissors. The gallbladder was now removed from the undersurface of the liver using hook cautery dissection. Graspers were repositioned and the gallbladder was removed uneventfully from the abdominal cavity through the super umbilical port site incision. The specimen was examined, then passed off to pathology for permanent analysis. We returned to the peritoneal cavity check for bleeding, and evidence of bile leak, and there was none. We Confirmed satisfactory placement of clips on cystic duct and cystic artery were secured . At this point we felt the operation was complete. The subcutaneous tissue was then anesthetized with quarter percent Marcaine Sponge and needle counts are correct. All ports removed under direct visualization pneumoperitoneum evacuated, and 5 mm port wounds closed with 3-0 Vicryl suture, benzoin and Steri-Strips. The patient was extubated, and taken to the recovery room in stable condition.
--- NOTE | 2019-02-10 14:12 | Discharge Summary ---
Discharge Summary (SDC) - Discharge Final Diagnosis: Cholelithiasis Date of Surgery: 02/10/19 Discharge Date: 02/10/19 Condition: Good Referrals: RENATO RUIZ PA-C [Primary Care Provider] - Discharge Diet: As Tolerated Discharge Activity: Activity As Tolerated, No Lifting Over 10 Pounds Report the Following to Your Physician Immediately: Shortness of Breath, Nausea, Vomiting, Fever over 101 Degrees - Patient is a follow-up in surgical clinic in 10 to 14 days
[2019-02-10] MEDS ORDERED: ACETAMINOPHEN 1,000 MG/100 ML RTUPB IV ONE (14:40)
[2019-02-10] MEDS ORDERED: FENTANYL CITRATE INJ/PF 100 MCG/2 ML AMPUL ONE (14:40)
[2019-02-10] MEDS ORDERED: LORAZEPAM INJ 2 MG/1 ML VIAL ONE (14:50)
[2019-02-10 17:36] VITALS: BP 114/78
== END 2019-02-10 17:30 | disposition home or self-care (01) ==
LOC: OROUT 12:06
PROVIDERS: ATTEND Surgery
DX: K80.20 Calculus of gallbladder without cholecystitis without obstruction (principal); Z88.5 Allergy status to narcotic agent; Z88.3 Allergy status to other anti-infective agents; J45.909 Unspecified asthma, uncomplicated; Z79.51 Long term (current) use of inhaled steroids; Z79.899 Other long term (current) drug therapy; F17.210 Nicotine dependence, cigarettes, uncomplicated; R01.1 Cardiac murmur, unspecified; G47.33 Obstructive sleep apnea (adult) (pediatric)
CPT/HCPCS: 86900; 86901; 36415; 86850; 82150; 85027; 81025; 80076; 80048; 88304 ×2; 00790; 47562; J2250; J0690; J1100; J1885; J3010; J3490 ×3; J2710; J2060; J0330; J2405; J2704; S0028; J0131; C9290; 790

== ENCOUNTER 2019-07-24 13:01 | Emergency (ER) | payer OTHER, MEDICAID ==
[2019-07-24] MEDS ORDERED: DEXAMETHASONE SOD PHOS INJ 10 MG/1 ML VIAL IM ONE (13:17)
[2019-07-24] MEDS ORDERED: METHYLPREDNISOLONE ACETATE INJ 40 MG/1 ML ML IM ONE (13:17)
--- NOTE | 2019-07-24 13:22 | ER Document Report ---
HPI - HPI Patient complains to provider of: Ear pain Time Seen by Provider: 07/24/19 13:13 Onset: Last week Onset/Duration: Intermittent Quality of pain: Achy, Fullness Context: This 18-year-old female has been on Augmentin for a week for an ear infection. She states that she stills has some fullness barriers and now she has diarrhea. Associated Symptoms: None Exacerbated by: Denies - REPRODUCTIVE Reproductive: DENIES: : Past Medical History - General Information source: Patient - Social History Smoking Status: Current Every Day Smoker Cigarette use (# per day): Yes - 20 Chew tobacco use (# tins/day): No Smoking Education Provided: No Frequency of alcohol use: None Drug Abuse: None Family History: Reviewed & Not Pertinent - Past Medical History Cardiac Medical History: Denies: Hx Coronary Artery Disease, Hx Heart Attack, Hx Hypertension Pulmonary Medical History: Reports: Hx Asthma - inhaler Denies: Hx Bronchitis, Hx COPD, Hx Pneumonia Neurological Medical History: Denies: Hx Cerebrovascular Accident, Hx Seizures Psychiatric Medical History: Reports: Hx Anxiety, Hx Bipolar Disorder, Hx Borderline Personality Disorder, Hx Depression, Hx Post Traumatic Stress Disorder - Immunizations Immunizations up to date: Yes Hx Diphtheria, Pertussis, Tetanus Vaccination: Yes Vertical Provider Document - CONSTITUTIONAL Agree With Documented VS: Yes - INFECTION CONTROL TRAVEL OUTSIDE OF THE [place] IN LAST 30 DAYS: No - HEENT HEENT: Atraumatic, Conjuctival Injection, Normocephalic, PERRLA - NECK Neck: Normal Inspection, Supple - RESPIRATORY Respiratory: Breath Sounds Normal, No Respiratory Distress - CARDIOVASCULAR Cardiovascular: Regular Rate, Regular Rhythm - GI/ABDOMEN Gastrointestinal: Abdomen Soft, Abdomen Non-Tender - REPRODUCTIVE Female Genitalia: Normal Inspection - BACK Back: Normal Inspection - MUSCULOSKELETAL/EXTREMETIES Musculoskeletal/Extremeties: MAEW Course - Re-evaluation Re-evalutation: 07/24/19 13:19 Patient has diarrhea which initiated 3 days after taking the Augmentin is happened in the past with Augmentin her TMs are pearly white she does have some clicking in her ears when she swallows consistent with that of eustachian tube dysfunction. Discharge - Discharge Clinical Impression: Eustachian tube dysfunction Qualifiers: Laterality: bilateral Qualified Code(s): H69.83 - Other specified disorders of Eustachian tube, bilateral Disposition: HOME, SELF-CARE Instructions: Meniere's Disease ([facility]) Prescriptions: Prednisone [Deltasone 20 mg Tablet] 3 tab PO DAILY 5 Days tablet Referrals: RENATO RIUZ PA-C [Primary Care Provider] - Follow up as needed
[2019-07-24 13:23] VITALS: BP 109/73
== END 2019-07-24 14:04 | disposition home or self-care (01) ==
LOC: ER 13:01
DX: H69.93 Unspecified Eustachian tube disorder, bilateral (principal); H66.90 Otitis media, unspecified, unspecified ear; R19.7 Diarrhea, unspecified; I10 Essential (primary) hypertension; F17.210 Nicotine dependence, cigarettes, uncomplicated
CPT/HCPCS: 99283; 96372; J1030; J1100

== ENCOUNTER 2019-09-28 13:30 | Emergency (ER) | payer OTHER, MEDICAID ==
[2019-09-28 13:57] VITALS: BP 113/78
== END 2019-09-28 16:45 | disposition left against medical advice (07) ==
LOC: ER 13:30
DX: Z53.21 Procedure and treatment not carried out due to patient leaving prior to being seen by health care provider (principal); R19.7 Diarrhea, unspecified; M54.9 Dorsalgia, unspecified

== ENCOUNTER 2019-10-15 22:56 | Emergency (ER) | payer OTHER, MEDICAID ==
--- NOTE | 2019-10-16 03:42 | ER Document Report ---
HPI - HPI Time Seen by Provider: 10/16/19 03:21 Pain Level: 3 Context: Patient is a 18-year-old female who comes emergency department for chief complaint of a fall injury. She states she was walking her dog ([employer] Sawyer) when the dog suddenly jerked her forward, she states she fell forward into the side, she states she scraped the top of her hands somehow and also landed awkwardly on her right side and back. She states that she has pain in her back now and she is worried because she has a history of back pain with facet joint disease and is treated with muscle x-rays, anti-inflammatories, and intermittent injections. She denies numbness, incontinence, radiating pain down to the legs, head injury, chest pain, abdominal pain, EtOH, vomiting. Patient states she is also treated with Zoloft and Klonopin. Patient denies any recreational drugs. She states her tetanus is up-to-date. - REPRODUCTIVE Reproductive: DENIES: : Past Medical History - General Information source: Patient - Social History Smoking Status: Current Every Day Smoker Frequency of alcohol use: None Drug Abuse: None Lives with: Family Family History: Reviewed & Not Pertinent Patient has homicidal ideation: No - Past Medical History Cardiac Medical History: Denies: Hx Coronary Artery Disease, Hx Heart Attack, Hx Hypertension Pulmonary Medical History: Reports: Hx Asthma - inhaler Denies: Hx Bronchitis, Hx COPD, Hx Pneumonia Neurological Medical History: Denies: Hx Cerebrovascular Accident, Hx Seizures Psychiatric Medical History: Reports: Hx Anxiety, Hx Bipolar Disorder, Hx Borderline Personality Disorder, Hx Depression, Hx Post Traumatic Stress Disorder - Immunizations Immunizations up to date: Yes Hx Diphtheria, Pertussis, Tetanus Vaccination: Yes Vertical Provider Document - CONSTITUTIONAL General Appearance: WD/WN, No Apparent Distress - INFECTION CONTROL TRAVEL OUTSIDE OF THE [place] IN LAST 30 DAYS: No - HEENT HEENT: Atraumatic, Normocephalic - NECK Neck: Normal Inspection - RESPIRATORY Respiratory: Breath Sounds Normal, No Respiratory Distress - CARDIOVASCULAR Cardiovascular: Regular Rate, Regular Rhythm - GI/ABDOMEN Gastrointestinal: Abdomen Soft, Abdomen Non-Tender. negative: Abdomen Tender - BACK Back: negative: Normal Inspection - Tenderness over the general lower lumbar area mainly on the right paralumbar musculature. No signs of trauma. No saddle anesthesia. Normal upper and lower extremity range of motion, normal strength, normal distal neurovascular exam. - MUSCULOSKELETAL/EXTREMETIES Musculoskeletal/Extremeties: LOTTIE SHELLEY. negative: Non-Tender - There are very small abrasions over the dorsal aspect of both hands but there is no soft tissue swelling, tenderness over the wrist or hand with palpation, full range of motion of all extremities and joints, normal distal neurovascular exam of upper and lower extremities. Otherwise unremarkable exam. - NEURO Level of Consciousness: Awake, Alert, Appropriate - DERM Integumentary: Warm, Dry. negative: Laceration Course - Re-evaluation Re-evalutation: Patient requesting x-ray him, this was performed, provided her with a copy of the report and image, this was negative. Physical exam is very reassuring with no concerning signs of trauma, patient ambulates without any difficulty, no neurovascular deficits, very low suspicion of serious injury from her fall. Discussed recommendations, options, follow-up, return precautions in detail. Patient states understanding and agreement. Stable and well-appearing at time of discharge. - Vital Signs Vital signs: Temp Pulse Resp BP Pulse Ox 98.3 F 93 14 111/71 100 10/16/19 02:54 10/16/19 02:54 10/16/19 02:54 10/16/19 02:54 10/16/19 02:54 Discharge - Discharge Clinical Impression: Fall Qualifiers: Encounter type: initial encounter Qualified Code(s): W19.XXXA - Unspecified fall, initial encounter Lower back pain Qualifiers: Chronicity: acute Back pain laterality: right Sciatica presence: without sciatica Qualified Code(s): M54.5 - Low back pain Condition: Stable Disposition: HOME, SELF-CARE Additional Instructions: Your imaging and evaluation are reassuring. This is most likely muscular strain and spasm only and this should simply resolve with time. I recommend heat to the area, continue your anti-inflammatory, you can substitute the prescribed muscle relaxer for the one you currently take, and rest. Avoid lifting or twisting. Most likely will have aggressive soreness for about 2 days and then you should improve/resolve. Follow-up with your provider for additional management. Return for any concerning symptoms including severe worsening pain, developing numbness, loss of control of your bowel/bladder, fever, or any other concerning symptoms. Prescriptions: Methocarbamol [Robaxin-750] 750 mg PO QID PRN #20 tablet PRN Reason: Forms: Return to Work Referrals: RENATO RUIZ PA-C [Primary Care Provider] - Follow up as needed
--- NOTE | 2019-10-16 04:36 | RADIOLOGY REPORT (SQ) ---
EXAM: X-ray lumbar spine five views CLINICAL DATA: 18-year-old female with back pain status post fall. TECHNICAL DATA: Three x-ray views of the lumbar spine were performed including an AP, lateral and coned lateral view of the lumbosacral junction. The study was performed on 10/16/2019 at 4:12 AM. Comparison: CT abdomen and pelvis performed on 11/24/2018. FINDINGS: There are five lumbar vertebrae. The lumbar vertebrae are normal in height and alignment. The disc spaces are well preserved in height. There is no evidence of acute fracture or subluxation. Bone mineralization is within normal limits. No focal lytic or sclerotic bone lesions are identified. The sacroiliac joints are normal. The pedicles and facet joints are unremarkable. The surrounding soft tissues are unremarkable. IMPRESSION: No evidence of acute osseous injury.
[2019-10-16 05:04] VITALS: BP 112/69
== END 2019-10-16 05:02 | disposition home or self-care (01) ==
LOC: ER 22:56
DX: M54.5 Low back pain (principal); F17.200 Nicotine dependence, unspecified, uncomplicated; X50.0XXA Overexertion from strenuous movement or load, initial encounter; Y93.K1 Activity, walking an animal
CPT/HCPCS: 72110; 99284

== ENCOUNTER 2019-10-22 12:02 | Emergency (ER) | payer OTHER, MEDICAID ==
[2019-10-22] MEDS ORDERED: ONDANSETRON 4 MG TAB.RAPDIS PO ONE (12:23)
[2019-10-22] MEDS ORDERED: ACETAMINOPHEN 325 MG TABLET PO ONE (12:23)
--- NOTE | 2019-10-22 12:24 | ER Document Report ---
ED Medical Screen (RME) - General Stated Complaint: HEAD PAIN Time Seen by Provider: 10/22/19 12:16 Primary Care Provider: RENATO RUIZ PA-C [Primary Care Provider] - Follow up as needed Mode of Arrival: Ambulatory Information source: Patient Notes: Patient states that she was walking her dog 6 days ago fell to the ground and reports positive loss of consciousness. Patient states since then she has had low back pain and headache with nausea and vomiting. Patient states she vomited 2 days ago. Patient reports dizziness in which she feels as though she is going to pass out. I have greeted and performed a rapid initial assessment of this patient. A comprehensive ED assessment and evaluation of the patient, analysis of test results and completion of the medical decision making process will be conducted by additional ED providers. TRAVEL OUTSIDE OF THE [place] IN LAST 30 DAYS: No - Related Data Allergies/Adverse Reactions: codeine [Codeine] Allergy (Intermediate, Verified 10/22/19 12:12) RASH sulfamethoxazole [From Septra] Allergy (Intermediate, Verified 10/22/19 12:12) RASH trimethoprim [From Septra] Allergy (Verified 10/22/19 12:12) Past Medical History - Social History Family history: Reviewed & Not Pertinent - Past Medical History Cardiac Medical History: Denies: Hx Coronary Artery Disease, Hx Heart Attack, Hx Hypertension Pulmonary Medical History: Reports: Hx Asthma - inhaler Denies: Hx Bronchitis, Hx COPD, Hx Pneumonia Neurological Medical History: Denies: Hx Cerebrovascular Accident, Hx Seizures Psychiatric Medical History: Reports: Hx Anxiety, Hx Bipolar Disorder, Hx Borderline Personality Disorder, Hx Depression, Hx Post Traumatic Stress Disorder Past Surgical History: Reports: Hx Cholecystectomy - Immunizations Immunizations up to date: Yes Hx Diphtheria, Pertussis, Tetanus Vaccination: Yes Physical Exam - Vital signs Vitals: Temp Pulse Resp BP Pulse Ox 98.6 F 94 20 110/70 99 10/22/19 12:08 10/22/19 12:08 10/22/19 12:08 10/22/19 12:08 10/22/19 12:08 - Neurological Neuro grossly intact: Yes Cognition: Normal [place] Coma Scale Eye Opening: Spontaneous [place] Coma Scale Verbal: Oriented [place] Coma Scale Motor: Obeys Commands [place] Coma Scale Total: 15 Course - Vital Signs Vital signs: Temp Pulse Resp BP Pulse Ox 98.6 F 94 20 110/70 99 10/22/19 12:08 10/22/19 12:08 10/22/19 12:08 10/22/19 12:08 10/22/19 12:08 Doctor's Discharge - Discharge Referrals: RENATO RUIZ PA-C [Primary Care Provider] - Follow up as needed
--- NOTE | 2019-10-22 12:49 | ER Document Report ---
ED General - General Chief Complaint: Dizziness Stated Complaint: HEAD PAIN Time Seen by Provider: 10/22/19 12:16 Primary Care Provider: GERSON DAILY MD [NO LOCAL MD] - Follow up as needed RENATO RUIZ PA-C [Primary Care Provider] - Follow up as needed Mode of Arrival: Ambulatory TRAVEL OUTSIDE OF THE [place] IN LAST 30 DAYS: No - HPI Notes: 18-year-old female presents to the emergency room for evaluation of dizziness after she fell and hit her head on October 15 while she was walking her dog. Patient states she does not remember falling at that time but noticed a few days later that she was having some lightheadedness and dizziness. She states that she vomited 2 days ago. Patient was seen the night of her accident and she was complaining of lower back pain. She did not address hitting her head because she could not remember it at that time. In triage they did order a CT head which was unremarkable. Denies fevers, chills, chest pain,palpitations, shortness of breath, dyspnea, nausea, vomiting, diarrhea, abdominal pain, hematuria,blurred vision, double vision, loss of vision, speech changes, syncope, headaches, wheezing, ST, URI, neck pain, weakness, bowel or bladder dysfunction, saddle anesthesia, numbness or tingling in bilateral upper or lower extremities equally, muscle paralysis, weakness in bilateral upper or lower e xtremities equally or rash. Denies IV drug use. MEDICATIONS: I agree with the patient medications as charted by the RN. ALLERGIES: I agree with the allergies as charted by the RN. PAST MEDICAL HISTORY/PAST SURGICAL HISTORY: Reviewed and agree as charted by RN. SOCIAL HISTORY: Reviewed and agree as charted by RN. FAMILY HISTORY: No significant familial comorbid conditions directly related to patient complaint EXAM: Reviewed vital signs as charted by RN. REVIEW OF SYSTEMS:reviewed vital signs by RN CONSTITUTIONAL : Denies fever, chills, or sweats. Denies recent illness. EENT: Denies eye, ear, throat, or mouth pain or symptoms. Denies nasal or sinus congestion or discharge. Denies throat, tongue, or mouth swelling or difficulty swallowing. CARDIOVASCULAR: Denies chest pain. Denies palpitations or racing or irregular heart beat. Denies ankle edema. RESPIRATORY: Denies cough, cold, or chest congestion. Denies shortness of breath, difficulty breathing, or wheezing. GASTROINTESTINAL: Denies abdominal pain or distention. Denies nausea, vomiting, or diarrhea. Denies blood in vomitus, stools, or per rectum. Denies black, tarry stools. Denies constipation. GENITOURINARY: Denies difficulty urinating, painful urination, burning, frequency, blood in urine, or discharge. FEMALE GENITOURINARY: Denies vaginal bleeding, heavy or abnormal periods, irregular periods. Denies vaginal discharge or odor. MUSCULOSKELETAL: Denies back or neck pain or stiffness. Denies joint pain or swelling. SKIN: Denies rash, lesions or sores. HEMATOLOGIC : Denies easy bruising or bleeding. LYMPHATIC: Denies swollen, enlarged glands. NEUROLOGICAL: Denies confusion or altered mental status. Denies passing out or loss of consciousness. reports dizziness or lightheadedness. Denies headache. Denies weakness or paralysis or loss of use of either side. Denies problems with gait or speech. Denies sensory loss, numbness, or tingling. Denies seizures. PSYCHIATRIC: Denies anxiety or stress. Denies depression, suicidal ideation, or homicidal ideation. ALL OTHER SYSTEMS REVIEWED AND NEGATIVE. PHYSICAL EXAMINATION: GENERAL: Well-appearing, well-nourished and in no acute distress. HEAD: Atraumatic, normocephalic. EYES: Pupils equal round and reactive to light, extraocular movements intact, conjunctiva are normal. ENT: Nares patent, oropharynx clear without exudates. Moist mucous membranes. NECK: Normal range of motion, supple without lymphadenopathy LUNGS: Breath sounds clear to auscultation bilaterally and equal. No wheezes rales or rhonchi. HEART: Regular rate and rhythm without murmurs ABDOMEN: Soft, nontender, nondistended abdomen. No guarding, no rebound. No masses appreciated. Female : deferred Musculoskeletal: Normal range of motion, no pitting or edema. No cyanosis. NEUROLOGICAL: Cranial nerves grossly intact. Normal speech, normal gait. Normal sensory, motor exams. PERRLA, EOMI. Full motor and sensory function throughout. 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 Tongue midline. No pronator drift. No ataxia. Neck with APROM. Raises eyebrows. Strength is 5 out of 5 in bilateral upper and lower extremities equally.Speaks in full sentences. No weakness on one side. Romberg gait steady able to walk straight line. Able to recall 5 objects. PSYCH: Normal mood, normal affect. SKIN: Warm, Dry, normal turgor, no rashes or lesions noted. Dictation was performed using [employer] voice recognition software - Related Data Allergies/Adverse Reactions: codeine [Codeine] Allergy (Intermediate, Verified 10/22/19 12:12) RASH sulfamethoxazole [From Septra] Allergy (Intermediate, Verified 10/22/19 12:12) RASH trimethoprim [From Septra] Allergy (Verified 10/22/19 12:12) Past Medical History - General Information source: Patient - Social History Smoking Status: Current Every Day Smoker Family History: Reviewed & Not Pertinent Patient has homicidal ideation: No - Past Medical History Cardiac Medical History: Denies: Hx Coronary Artery Disease, Hx Heart Attack, Hx Hypertension Pulmonary Medical History: Reports: Hx Asthma - inhaler Denies: Hx Bronchitis, Hx COPD, Hx Pneumonia Neurological Medical History: Denies: Hx Cerebrovascular Accident, Hx Seizures Psychiatric Medical History: Reports: Hx Anxiety, Hx Bipolar Disorder, Hx Borderline Personality Disorder, Hx Depression, Hx Post Traumatic Stress Di sorder Past Surgical History: Reports: Hx Cholecystectomy - Immunizations Immunizations up to date: Yes Hx Diphtheria, Pertussis, Tetanus Vaccination: Yes Physical Exam - Vital signs Vitals: Temp Pulse Resp BP Pulse Ox 98.6 F 94 20 110/70 99 10/22/19 12:08 10/22/19 12:08 10/22/19 12:08 10/22/19 12:08 10/22/19 12:08 Course - Re-evaluation Re-evalutation: 10/22/19 15:48 Afebrile vital stable no distress. Nurses notes reviewed. CBC negative for l eukocytosis or anemia, CMP negative for hepatic or renal dysfunction, serum hCG negative. Urinalysis only shows hematuria otherwise unremarkable. CT head does not show any acute findings, essentially unremarkable. Does appear the patient has postconcussive syndrome and does need to follow-up with a neurologist. Discussed at length how to manage postconcussive syndrome with minimizing phone use, computers, TV use, fine print reading, it is advisable take a few days off from work. Patient does need to follow-up with her neurologist. Patient reports that she did have a concussion last year where she hit her head on a kitchen sink, did not get follow-up. Her last menstrual cycle was October 17, 2019. Referral to a neurologist has been provided. \\Advised to see a neurologist within the next 3 days or so. After performing a Medical Screening Examination, I estimate there is LOW risk for INTRACRANIAL HEMORRHAGE, ISCHEMIC CVA, MALIGNANT DYSRHYTHMIA, ACUTE CORONARY SYNDROME, MENINGITIS, PULMONARY EMBOLISM, or SEPSIS thus I consider the discharge disposition reasonable. I have reevaluated this patient multiple times and no significant life threatening changes are noted. The patient and I have discussed the diagnosis and risks, and we agree with discharging home with close follow-up with the understanding that symptoms and presentations can change. We also discussed returning to the Emergency Department immediately if new or worsening symptoms occur. We have discussed the symptoms which are most concerning (e.g., changing or worsening pain, weakness, vomiting, fever) that necessitate immediate return. - Vital Signs Vital signs: Temp Pulse Resp BP Pulse Ox 98.6 F 74 20 126/69 H 99 10/22/19 12:08 10/22/19 13:20 10/22/19 12:08 10/22/19 13:20 10/22/19 12:08 - Laboratory Result Diagrams: 10/22/19 12:27 10/22/19 12:27 Laboratory results interpreted by me: 10/22/19 10/22/19 10/22/19 12:27 12:27 13:30 RDW 14.2 H Glucose 112 H Urine Blood MODERATE H Discharge - Discharge Clinical Impression: Dizziness, Post concussive syndrome Condition: Stable Disposition: HOME, SELF-CARE Instructions: Dizziness ([facility]), Post-Concussion Syndrome ([facility]), Vertigo ([facility]), Antinausea Medication ([facility]) Additional Instructions: DIZZINESS: Under normal circumstances, your sense of balance is controlled by a number of signals that your brain receives from several locations: Eyes. No matter what your position, visual signals help you determine where your body is in space and how it's moving. Sensory nerves. These are in your skin, muscles and joints. Sensory nerves send messages to your brain about body movements and positions. Inner ear. The organ of balance in your inner ear is the vestibular labyrinth. It includes loop-shaped structures (semicircular canals) that contain fluid and fine, hair-like sensors that monitor the rotation of your head. Near the semicircular canals are the utricle and saccule, which contain tiny particles called otoconia ([id number]-[id number]). These particles are attached to sensors that help detect gravity and [id number] motion. Good balance depends on at least two of these three sensory systems working well. For instance, closing your eyes while washing your hair in the shower doesn't mean you'll lose your balance. Signals from your inner ear and sensory nerves help keep you upright. However, if your central nervous system can't process signals from all of these locations, if the messages are contradictory, or if the sensory systems aren't functioning properly, you may experience loss of balance. Dizziness may have a number of potential causes. These may include: Vertigo Vertigo - the false sense of motion or spinning - is the most common symptom of dizziness. Sitting up or moving around may make it worse. Sometimes vertigo is severe enough to cause nausea and vomiting. Vertigo usually results from a problem with the nerves and the structures of the balance mechanism in your inner ear (vestibular system), which sense movement and changes in your head position. Abnormal rhythmic eye movements (nystagmus) almost always accompany vertigo. Causes of vertigo may include: Benign paroxysmal positional vertigo (BPPV). BPPV involves intense, brief episodes of vertigo associated with a change in the position of your head, often when you turn over in bed or sit up in the morning. It occurs when normal calcium carbonate crystals (otoconia) break loose and fall into the wrong part of the canals in your inner ear. When these particles shift, they stimulate sensors in your ear, producing an episode of vertigo. Doctors don't know what causes BPPV, but it may be a natural result of aging. Trauma to your head also may lead to BPPV. Inflammation in the inner ear. Signs and symptoms of inflammation of the inner ear (acute vestibular neuronitis or labyrinthitis) include sudden, intense vertigo that may persist for several days, with nausea and vomiting. It can be incapacitating, requiring bed rest to minimize the signs and symptoms. Fortunately, vestibular neuronitis generally subsides and clears up on its own. Recovery time may be shorter with vestibular rehabilitation exercises. Although the cause of this condition is unknown, it may be a viral infection. Meniere's disease. This disease involves the excessive buildup of fluid in your inner ear. It may affect adults at any age and is characterized by sudden episodes of vertigo lasting 30 minutes to an hour or longer. Other signs and symptoms include the feeling of fullness in your ear, buzzing or ringing in your ear (tinnitus), and fluctuating hearing loss. The cause of Meniere's disease is unknown. Vestibular migraine. People who experience a vestibular migraine are very sensitive to motion. Dizziness and vertigo caused by a vestibular migraine may be triggered by turning your head quickly, being in a crowded or confusing place, driving or riding in a vehicle, or even watching movement on TV. A vestibular migraine may cause feelings of imbalance or unsteadiness, hearing loss, "muffled" hearing, or ringing in your ears (tinnitus). For most people with a vestibular migraine, vertigo doesn't necessarily happen at the same time as the headache. Instead, typical migraine triggers may lead to vertigo without an actual migraine. Attacks of migrainous vertigo can last from a few minutes to several days. Acoustic neuroma. An acoustic neuroma (schwannoma) is a noncancerous (benign) growth on the acoustic nerve, which connects the inner ear to your brain. Signs and symptoms of an acoustic neuroma may include dizziness, loss of balance, hearing loss and tinnitus. Rapid changes in motion. Riding on roller coasters or in boats, cars or even airplanes may on occasion make you dizzy. Other causes. Rarely, vertigo can be a symptom of a more serious neurological problem such as a stroke, brain hemorrhage or multiple sclerosis. NORMAL EXAM AND WORKUP: At this time, your examination and workup show no significant abnormality. No significant abnormal physical findings were noted. All laboratory, EKG, and imaging (x-ray, CT scans, ultrasound) studies that were ordered show no significant abnormality. Although your examination and all studies that were ordered showed no significant abnormal finding, there are no examinations and no studies that are 100% accurate. There is always the possibility that some abnormality could exist and not be detected with physical examination or within the limits and capabilities of laboratory and other studies. You should return or follow up as you were instructed on your visit today for further evaluation if your symptoms do not resolve. MECLIZINE: You are to take meclizine (Antivert) for control of symptoms. This is a drug of the antihistamine family which is useful for controlling nausea, dizziness, and motion sickness. Meclizine is usually taken three times a day, as needed. It's more effective at preventing symptoms than at relieving severe symptoms once they occur. It can be taken BEFORE activities which are likely to cause dizziness or nausea. Common side effects of this medicine are drowsiness and dry mouth. You should use caution in driving or operating machinery while taking this medication. In particular, you should not drive long distances or drive at night while taking this medicine. Meclizine should not be combined with alcohol, narcotics, or sedative medications without consulting your physician. ANTINAUSEA MEDICATION: You have been given a medication to suppress nausea and vomiting. This type of medication can be given as a shot, pill, or suppository. It will usually last for many hours. Pills and shots usually last six to eight hours, suppositories last about 12 hours. For the typical illness, only one or two doses of the medication may be necessary. Mild lightheadedness may occur. This type of medicine can cause drowsiness. Do not drive or operate dangerous machinery while under its influence. Do not mix with alcohol. See your doctor at once if you have muscle spasms or tightness, or uncontrollable motions (particularly of the neck, mouth, or jaw). Persistent vomiting or severe lightheadedness should also be evaluated by the physician. FOLLOW-UP CARE: If you have been referred to a physician for follow-up care, call the ysicians office for an appointment as you were instructed or within the next two days. If you experience worsening or a significant change in your symptoms, notify the physician immediately or return to the Emergency Department at any time for re-evaluation. Prescriptions: Meclizine HCl 12.5 mg PO TIDP PRN #30 tablet PRN Reason: Ondansetron [Zofran Odt 4 mg Tablet] 1 - 2 tab PO Q4H PRN #15 tab.rapdis PRN Reason: For Nausea/Vomiting Forms: Return to Work Referrals: RENATO RUIZ PA-C [Primary Care Provider] - Follow up as needed GERSON DAILY MD [NO LOCAL MD] - Follow up as needed
[2019-10-22 12:52] LABS: ABSOLUTE BASOPHILS # (AUTO) 0.1 10^3/uL (0.0-0.2); ABSOLUTE EOSINOPHILS # (AUTO) 0.2 10^3/uL (0.0-0.6); ABSOLUTE NEUT (AUTO) 5.5 10^3/uL (1.7-8.2); BASOPHILS % (AUTO) 0.7 % (0-2); EOSINOPHILS % (AUTO) 1.7 % (0-6); HEMATOCRIT 43.4 % (36.0-47.0); HEMOGLOBIN 15.1 g/dL (12.0-15.5); LYMPHOCYTES % (AUTO) 31.2 % (13-45); MEAN CORPUSCULAR HEMOGLOBIN 29.3 pg (27.0-33.4); MEAN CORPUSCULAR HGB CONC 34.9 g/dL (32.0-36.0); MEAN CORPUSCULAR VOLUME 84 fl (80-97); MONOCYTES % (AUTO) 9.8 % (3-13); PLATELET COUNT 370 10^3/uL (150-450); RED BLOOD COUNT 5.16 10^6/uL (3.72-5.28); RED CELL DISTRIBUTION WIDTH 14.2 % (11.5-14.0); SEGMENTED NEUTROPHILS % (AUTO) 56.6 % (42-78); TOTAL CELLS COUNTED % (AUTO) 100 %; WHITE BLOOD COUNT 9.7 10^3/uL (4.0-10.5)
[2019-10-22 13:03] LABS: ANION GAP 9 (5-19); BLOOD UREA NITROGEN 10 mg/dL (7-20); CALCIUM 9.5 mg/dL (8.4-10.2); CARBON DIOXIDE 26 mmol/L (22-30); CHLORIDE 106 mmol/L (98-107); GLUCOSE 112 mg/dL (75-110)
--- NOTE | 2019-10-22 13:06 | RADIOLOGY REPORT (SQ) ---
EXAM DESCRIPTION: CT HEAD WITHOUT IMAGES COMPLETED DATE/TIME: 10/22/2019 12:50 pm REASON FOR STUDY: PAGAN, head injury COMPARISON: None. TECHNIQUE: Axial images acquired through the brain without intravenous contrast. Images reviewed wi th bone, brain and subdural windows. Images stored on PACS. All CT scanners at this facility use dose modulation, iterative reconstruction, and/or weight based d osing when appropriate to reduce radiation dose to as low as reasonably achievable (ALARA). [facility]: Dose Right [facility]: CareDose [facility]: Dose Right [facility]: Teradose 4D [facility]: ROI land investment RADIATION DOSE: CT Rad equipment meets quality standard of care and radiation dose reduction techniq ues were employed. CTDIvol: 53.2 mGy. DLP: 911 mGy-cm. mGy. LIMITATIONS: None. FINDINGS: VENTRICLES: Normal size and contour. CEREBRUM: No masses. No hemorrhage. No midline shift. No evidence for acute infarction. Normal gra y/white matter differentiation. No areas of low density in the white matter. CEREBELLUM: No masses. No hemorrhage. No alteration of density. No evidence for acute infarction. EXTRAAXIAL SPACES: No fluid collections. No masses. ORBITS AND GLOBE: No intra- or extraconal masses. Normal contour of globe without masses. CALVARIUM: No fracture. PARANASAL SINUSES: No fluid or mucosal thickening. SOFT TISSUES: No mass or hematoma. OTHER: No other significant finding. IMPRESSION: NORMAL BRAIN CT WITHOUT CONTRAST. EVIDENCE OF ACUTE STROKE: NO. COMMENT: Quality ID # [id number]: Final reports with documentation of one or more dose reduction techniques (e.g., Automated exposure control, adjustment of the mA and/or kV according to patient size, use of iterative reconstruction technique) TECHNICAL DOCUMENTATION: JOB ID: [id number] 2010 [employer]- All Rights Reserved Reading location - IP/workstation name: [email or web address]
[2019-10-22 13:57] LABS: AMORPHOUS SEDIMENT,URINE TRACE /HPF; APPEARANCE,URINE SLIGHTLY-CLOUDY; BILIRUBIN,URINE NEGATIVE (NEGATIVE); COLOR,URINE YELLOW; GLUCOSE, URINE NEGATIVE (NEGATIVE); KETONES,URINE NEGATIVE (NEGATIVE); LEUKOCYTE ESTERASE,URINE NEGATIVE (NEGATIVE); NITRITE,URINE NEGATIVE (NEGATIVE); PROTEIN,URINE NEGATIVE (NEGATIVE); URINE SPECIFIC GRAVITY 1.021; UROBILINOGEN,URINE NEGATIVE mg/dL (<2.0)
[2019-10-22 16:00] VITALS: BP 117/74
== END 2019-10-22 15:57 | disposition home or self-care (01) ==
LOC: ER 12:02
DX: R42 Dizziness and giddiness (principal); F07.81 Postconcussional syndrome; R31.9 Hematuria, unspecified; F17.200 Nicotine dependence, unspecified, uncomplicated; Z90.49 Acquired absence of other specified parts of digestive tract; Z88.6 Allergy status to analgesic agent; Z88.3 Allergy status to other anti-infective agents
CPT/HCPCS: 99284; 36415; 84703; 85025; 80048; 81001; 70450; S0119